=== PATIENT | female | born 1985 | race Caucasian/White ===

== ENCOUNTER 2024-11-17 13:17 | Outpatient (AMB) | payer MEDICAID, SELFPAY ==
--- NOTE | 2024-11-17 13:34 | AMB.OBINITIA ---
Vital Signs 11/17/24 13:52 Height 1.6 m Height Method Stated Weight 86.75 kg Weight Measurement Method Standing Scale BMI 33.8 BP 121/80 Blood Pressure Source Automatic Cuff Blood Pressure Location Right Upper Arm Position Sitting Respiration 17 Pulse 82 Pulse Source Monitor Temp 97.5 F Temp Source Temporal Artery Scan Pulse Oximetry (%) 97 Oxygen Delivery Method Room Air Allergies/Home Meds Allergies & Medications Allergies No Known Allergies Allergy (Verified 11/17/24 13:34) Medication Reconciliation aspirin 81 mg tablet,delayed release (Adult Aspirin Regimen) 81 mg PO QDAY #30 tabs 11/17/24 [Rx] Intake Visit Data Collection New Patient or Established: New Patient (never been to [facility]) 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 1. Little interest or pleasure in doing things: more than half the days 2. Feeling down, depressed, or hopeless: more than half the days Total score: 4 PHQ-9 3. Trouble falling or staying asleep, or sleeping too much: More than one-half days 4. Feeling tired or having little energy: More than one-half days 5. Poor appetite or overeating: Not at all 6. Feeling bad about yourself - or that you are a failure or have let yourself or your family down: Several days 7. Trouble concentrating on things, such as reading the newspaper or watching television: Several days 8. Moving or speaking so slowly that other people could have noticed? - Or the opposite - being so fidgety or restless that you have been moving around a lot more than usual: not at all 9. Thoughts that you would be better off or of hurting yourself in some way: Not at all Total score: 10.0 If you checked off any problems, how difficult have these problems made it for you to do your work, take care of things at home, or get along with other people?: somewhat difficult Source: Developed by Drs. Kana Sotelo, Nuha Domínguez, Genaro Jc and colleagues, with an educational missy from [employer]. Depression screen completed yes Social History Living Situation History Marital Status: Lives With: Family Housing: House Tobacco History Smoking Status: Never smoker Alcohol History Alcohol Intake: Never Domestic Abuse History Do You Feel Safe at Home: Yes History of Present Illness HPI Narrative This is a 39-year-old 6 para 4 for OB today. Patient is a transfer from [facility]. She has been seeing Dr. Maynard. Her first visit was in the first trimester. First ultrasound was September 17. Patient was 11 weeks and this gave a due date January 2025. Last menstrual period was March 23-. And this also confirmed her dates with her ultrasound. Patient denies social habits. Denies surgery. Denies chronic illness. Patient has been diagnosed with GDM with the . And anemia. Patient was previously scheduled by Dr. Maynard for a maternal- medicine ultrasound November 27 but patient canceled that appointment because it is too far away. And she would like to have an ultrasound here in [place]. She reports movement. Denies any signs or symptoms labor. No bleeding. No leaking. Patient reports that she is compliant with her blood sugars however when I looked at her log and her phone her fastings were normal. Her blood sugars after breakfast though about 75% of overall over goal. Lunch and dinner were okay though patient is O+, antibody screen negative, RPR nonreactive, rubella immune, hepatitis B negative, hep C negative, HIV negative, GC and Chlamydia were negative. Her 1 hour was 167 and then her A1c 5.93 or of course was abnormal. Her NIPT AFP and carrier screens were all negative. And her hemoglobin with third trimester labs was 11. And patient's been taking iron and her vitamin. 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 compliannt with glucose testing and diet. fetus active. c/o dysuria. refused mfm referal due to locartion. denies ptl signs,no leaking, fetus active low dose asa. continue PNV, sched sono at [facility] for growth sono, patient cancelled sono with MFM/too far, schedule NST/BPP. continue metformin 500 bid. continue GDM diet, sched with OB, sugars after breakfast elevated 75%. continue to walk 40 min daily, discuss fkc bid and PTL prwcaution, discuss GDM diet. A1c and ua today. rtc 2 week Menstrual History Menstrual reliability: definite Flow: heavy Menstrual regularity: irregular Monthly: Yes Age at menarche: 11 On control pills at conception: No OB History : 5 Para: 4 Hx # Pregnancies: 0 Hx Total # of Abortions (Spontaneous & Elective): 1 # of Living Children: 4 Delivery History 1st : Child's name: KIMMY WINSLOW date: 12/23/04 sex: female Gestational age at delivery (weeks): 40 Delivery type: vaginal weight (lbs): 3175.147 g weight (oz): 311.845 g History of depression before or after : No 2nd : Child's name: BORIS WINSLOW date: 07/18/06 sex: female Gestational age at delivery (weeks): 40 Delivery type: vaginal weight (lbs): 3175.147 g weight (oz): 170.097 g History of depression before or after : Yes 3rd : Child's name: MENG HOYOS date: 01/16/08 sex: male Gestational age at delivery (weeks): 40 Delivery type: vaginal weight (lbs): 198.447 g History of depression before or after : Yes 4th : Child's name: PAPO WINSLOW date: 05/31/17 sex: female Gestational age at delivery (weeks): 40 Delivery type: vaginal weight (lbs): 2721.554 g History of depression before or after : No Infection History & Risk Evaluation History of STDs: none HIV risk evaluation: low risk Hepatitis B risk evaluation: low risk Patient or partner has history of Genital Herpes: No Varicella/chicken pox status: immunized Genetic Screening & History Genetic Screening/Teratology Counseling - Includes patient, baby's father, or anyone in either family with: 1. Patient's age 35 years or older as of estimated date of delivery: Yes 2. Thalassemia (Lithuanian, Senegalese, Mediterranean, or Background); MCV less than 80: No 3. Neural Tube Defect (Meningomyelocele, Spina Bifida, or Anencephaly): No 4. Congenital Heart Defect: No 5. Down Syndrome: No 6. Pavel-Sachs (Ashkenazi Yarsanism, Cajun, Indonesian Welsh): No 7. Monica Disease (Ashkenazi Yarsanism): No 8. Familial Dysautonomia (Ashkenazi Yarsanism): No 9. Sickle Cell Disease or Trait (): No 10. Hemophilia or other blood disorders: No 11. Muscular Dystrophy: No 12. Cystic Fibrosis: No 13. Cecil's Chorea: No 14. Mental Retardation/Autism: No 15. Other inherited genetic or chromosomal disorder: No 16. Maternal Metabolic Disorder (EG,TYPE 1 Diabetes, PKU): No 17. Patient or baby's father had a child with defects not listed above: No 18. Recurrent loss or a stillbirth: No 19. Medications (including supplements, vitamins, herbs or otc drugs)/illicit/recreational drugs/alcohol since last menstrual period: No 20. Any other: No Infection History 1. Live with someone with TB or exposed to TB: No 2. Rash or viral illness since last menstrual period: No 3. Hepatitis B,C: No Other (see comments) Source: [employer] [place] [employer] Review of Systems Review of Systems Systems Reviewed: All systems reviewed, normal except as documented Exam General Limitations: no limitations General Appearance: alert, in no apparent distress, comfortable, cooperative, healthy appearing, well developed and well groomed Head Head exam: atraumatic, normocephalic and normal inspection Resp Respiratory exam: Present normal lung sounds bilaterally Card Cardiovascular exam: Present regular rate, normal rhythm and normal heart sounds Abdominal Abdominal exam: Present soft and normal bowel sounds Psych Psychiatric exam: Present normal affect and normal mood Skin Skin exam: Present warm, dry, intact and normal color Office Procedures OB Clinic LOC & Office Proc's Nursing/Assessment Patient Status: Initial/New Patient OB Clinic Nursing Assessment: Medication Reconciliation, Update PMH in EMR and Vital Signs OB Clinic Coordination of Care: Complex Care and Chronic Disease 1-5, Consent,records obtained, informed consent, Education Simp Pt/Fam and Staff clarify orders Special Needs: Heart tones New Patient Charge New Patient Point Assignment: [id number] New Patient Point 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 Continue vitamins and her iron twice a day. Schedule with OB to evaluate compliance with GDM diet and glucose monitoring. Reviewed GDM diet with patient advised walking 40 minutes a day. Increase fluids. Discussed kick count. And I scheduled patient to start weekly NST BPP. Return in 3 weeks with me for OB check.continue metformin 500 bid, urine culture today and A1c Additional Plan Follow Up: 3 Weeks (OBC)
[2024-11-17 13:52] VITALS: BP 121/80; PULSE 82; RESP 17; TEMP 36.4; O2SAT 97; BMI 33.8
== END 2024-11-17 14:22 | disposition home or self-care (01) ==
LOC: HODSOBC 13:17
PROVIDERS: PCP Physician Assistant; Referring Provider Physician Assistant; Supervising Provider Advanced Practice Midwife; Visit Provider Advanced Practice Midwife
DX: O09.523 Supervision of elderly multigravida, third trimester (principal); Z3A.33 33 weeks gestation of pregnancy; O09.893 Supervision of other high risk pregnancies, third trimester; O24.415 Gestational diabetes mellitus in pregnancy, controlled by oral hypoglycemic drugs
CPT/HCPCS: 99203; G0463

== ENCOUNTER 2024-11-28 11:07 | Outpatient (AMB) | payer MEDICAID, SELFPAY ==
[2024-11-28 11:14] VITALS: BP 133/82; PULSE 78; RESP 17; TEMP 36.6; O2SAT 97; BMI 34.8
--- NOTE | 2024-11-28 11:14 | AMB.OBVISIT ---
Vital Signs 11/28/24 11:14 Height 1.6 m Height Method Measured Weight 89.131 kg Weight Measurement Method Standing Scale BMI 34.8 BP 133/82 H Blood Pressure Source Automatic Cuff Blood Pressure Location Right Upper Arm Position Sitting Respiration 17 Pulse 78 Pulse Source Monitor Temp 97.8 F Temp Source Temporal Artery Scan Pulse Oximetry (%) 97 Oxygen Delivery Method Room Air Allergies/Home Meds Allergies & Medications Allergies No Known Allergies Allergy (Verified 11/28/24 11:15) Medication Reconciliation aspirin 81 mg tablet,delayed release (Adult Aspirin Regimen) 81 mg PO QDAY #30 tabs 11/17/24 [Rx Confirmed 11/28/24] amoxicillin 875 mg-potassium clavulanate 125 mg tablet 1 tab PO BID 7 days #14 tabs 11/27/24 [Rx Confirmed 11/28/24] mv-mn no.97-folic 180 mcg-dha 25 mg-herb no.293 25 mg chewable tablet (Alive Daily Support ) tab PO 11/28/24 [History Confirmed 11/28/24] Intake Visit Data Collection New Patient or Established: Established Patient (seen at [facility] within 3 years) Reason for Visit:: OBC\SUGAR LOG Seen by Clinical Staff ONLY (RN/MA): No Hematology Supervisor Required: No Do You Feel Safe at Home: Yes Authorities Contacted: N/A PCP or OBGYN visit in last 3 months: Yes Date of Last PCP or OBGYN visit: 11/17/24 Hx Now: Yes Are you currently on any form of Control: No Pain Present Currently: No Pain Scale Used: Srinivasan-Cotto/Numerical Pain scale:: 0 Smoking Status Smoking Status: Never smoker Questionnaires Covid-19 Vaccine Questionnaire Has patient been vacinated for Covid-19 Have you been vacinated for Covid-19: Yes PHQ-9 PHQ-2 Over the last 2 weeks, how often have you been bothered by any of the following problems? 1. Little interest or pleasure in doing things: more than half the days PHQ-9 8. Moving or speaking so slowly that other people could have noticed? - Or the opposite - being so fidgety or restless that you have been moving around a lot more than usual: not at all Source: Developed by Drs. Kana Sotelo, Nuha Domínguez, Genaro Jc and colleagues, with an educational missy from [employer]. 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 No contractions, LOF, VB and reports good FM. Denies HAGAN, VC, and epigastric pain. - Wendy Marin is a 39-year-old at 34 weeks and 5 days gestation presenting for routine visit and review of blood glucose logs. - Estimated due date: 01/04/2025 - Transferred care from [facility] (Dr. Dietz) to current office - All previous deliveries were vaginal - Gestational diabetes management: - Currently on Metformin 2 times a day - Home blood glucose monitoring - Highest fasting glucose reported: 120 mg/dL - Highest post-meal glucose reported: 140-150 mg/dL - Patient reports occasional indulgence in cravings - No reported complications or concerns with current heart tones: 142-144 bpm. Laboratory, Imaging, and Diagnostic Test Results - Blood glucose logs: - Fasting: Highest reported as 95 mg/dL - Post-meal: Highest reported as 145 mg/dL - Previous week: Some values above 150 mg/dL, majority below 150 mg/dL Care OB Visit Log OB Flowsheet Initial Weight: Not Recorded Date <del>?</del> EGA Weight BP Alb Glu CTX Pres Fundal ht FHR Mov Dilation Station Effacement Hx Notes Visit Note 11/17/24 <del>?</del> 33w 1d 86.75 kg 121/80 absent cephalic 32 145 active 39 yo ob transfer from [facility] with records, GDM on metformin 500 bid. compliannt with glucose testing and diet. fetus active. c/o dysuria. refused mfm referal due to locartion. denies ptl signs,no leaking, fetus active low dose asa. continue PNV, sched sono at [facility] for growth sono, patient cancelled sono with MFM/too far, schedule NST/BPP. continue metformin 500 bid. continue GDM diet, sched with OB, sugars after breakfast elevated 75%. continue to walk 40 min daily, discuss fkc bid and PTL prwcaution, discuss GDM diet. A1c and ua today. rtc 2 week 11/28/24 <del>?</del> 34w 5d 89.131 kg 133/82 absent cephalic 35 144 39y/o at 34+5 weeks gestation with GDM on metformin BID, presents for routine visit. Denies CTX, LOF, VB; reports good FM Plan: continue metformin, initiate BPP [id number], schedule IOL ~12/28/24, f/u in 2 weeks. BARBIE Calculator Estimated Delivery Date Method Current WG Current Estimate 01/04/25 LMP (Certain) 34w 5d Notes Visit Date: 11/17/24 Last Updated by: Court Granda, MARIELA 39 yo GDM/diet. lmp 03/30/25. EDC 01/08/25, 1hr gtt: 169, A1: 5.9. O+,abs-, rpr;;nr, rub imm, HBSAG-,hiv-, HC-, GC./CT-. . NIPT/af/,carrier screen- Exam General General Appearance: alert, in no apparent distress and healthy appearing Head Head exam: atraumatic Neck Neck exam: Present normal inspection and trachea midline Chest Chest inspection: Present normal inspection and symmetric chest wall rise External exam: Present normal external exam; Absent tenderness Neuro Neurological exam: Present oriented X3 Psych Psychiatric exam: Present normal affect and normal mood Office Procedures OB Clinic LOC & Office Proc's Nursing/Assessment Patient Status: Established Patient OB Clinic Nursing Assessment: Medication Reconciliation, Update PMH in EMR and Vital Signs OB Clinic Coordination of Care: Complex Care and Chronic Disease 1-5, Consent,records obtained, informed consent and Staff clarify orders Special Needs: Heart tones Established Patient Charge Established Patient Point Assignment: 100 Established Patient Point Charge: EP Level 3 (80-115) Assessment & Plan Diagnosis / Problem List (1) UTI in : Status: Acute (2) ESBL (extended spectrum beta-lactamase) producing bacteria infection: Status: Acute (3) Encounter for supervision of high risk in third trimester, antepartum: Status: Acute (4) Diet controlled gestational diabetes mellitus (GDM) in third trimester: Status: Acute Plan Problem List - Gestational diabetes mellitus - , 34 weeks and 5 days gestation - 5, para 4 Assessment 39-year-old at 34 weeks and 5 days gestation with BARBIE 01-04-2025, presenting for routine visit. Patient has gestational diabetes mellitus (GDM) managed with metformin 2 times daily and diet control. Home glucose monitoring shows mostly acceptable levels, with a few readings above 150 mg/dL. heart rate auscultated at 142-144 bpm, which is within normal range. Patient has history of 4 previous vaginal deliveries and transferred care from [facility]. Plan - Continue Metformin twice daily for gestational diabetes management - Set up hospital monitoring for well-being twice weekly - Schedule induction for one week before due date (approximately 12/28/2024) - Follow up in two weeks (week of 12/15/2024) due to holiday next week - Maintain diet control and blood glucose monitoring - Advised to walk for 5-10 minutes after eating sweets to help manage blood sugar levels - Will call patient to set up hospital monitoring appointments 1. Progress Reviewed gestational age, growth, and heart rate. Planned frequent visits (every 2 weeks until 36 weeks, then weekly). 2. Instructed patient to monitor movements and report decreases immediately. 3. Testing Counseled on routine third-trimester labs per guidelines. Discussed potential need for ultrasound or monitoring based on risk factors. 4. Preeclampsia Precaution Educated on preeclampsia signs: severe headache, vision changes, right upper quadrant pain, sudden swelling. Advised urgent reporting of symptoms and discussed blood pressure monitoring if high risk. 5. Labor Precautions Reviewed labor signs: regular contractions, pelvic pressure, back pain, bleeding, or fluid leakage. Instructed to seek immediate care for these symptoms. 6. Lifestyle and Delivery Preparation Reinforced vitamins, nutrition, and safe activity. Discussed plan, pain management, and . Advised on labor preparation (e.g., hospital bag) and expectations. 7. Psychosocial Support Assessed emotional well-being and offered resources for mental health or parenting support.
== END 2024-11-28 11:37 | disposition home or self-care (01) ==
LOC: HODSOBC 11:07
PROVIDERS: PCP Obstetrics & Gynecology; Referring Provider Obstetrics & Gynecology; Supervising Provider Obstetrics & Gynecology; Visit Provider Obstetrics & Gynecology
DX: O09.523 Supervision of elderly multigravida, third trimester (principal); O09.893 Supervision of other high risk pregnancies, third trimester; O24.415 Gestational diabetes mellitus in pregnancy, controlled by oral hypoglycemic drugs; O23.43 Unspecified infection of urinary tract in pregnancy, third trimester; N39.0 Urinary tract infection, site not specified; Z3A.34 34 weeks gestation of pregnancy; Z16.12 Extended spectrum beta lactamase (ESBL) resistance
CPT/HCPCS: 99213; G0463

== ENCOUNTER 2024-12-09 09:56 | Outpatient (AMB) | payer MEDICAID, SELFPAY ==
[2024-12-09 10:17] VITALS: BP 134/84; PULSE 71; RESP 17; TEMP 36.6; O2SAT 97; BMI 34.9
--- NOTE | 2024-12-09 10:17 | OBCLNT_ITS ---
Vital Signs 12/09/24 10:17 Height 1.6 m Height Method Measured Weight 89.358 kg Weight Measurement Method Standing Scale BMI 34.9 BP 134/84 H Blood Pressure Source Automatic Cuff Blood Pressure Location Right Upper Arm Position Sitting Respiration 17 Pulse 71 Pulse Source Monitor Temp 97.9 F Temp Source Temporal Artery Scan Pulse Oximetry (%) 97 Oxygen Delivery Method Room Air Allergies/Home Meds Allergies & Medications Allergies No Known Allergies Allergy (Verified 12/09/24 10:18) Medication Reconciliation aspirin 81 mg tablet,delayed release (Adult Aspirin Regimen) 81 mg PO QDAY #30 tabs 11/17/24 [Rx Confirmed 12/09/24] mv-mn no.97-folic 180 mcg-dha 25 mg-herb no.293 25 mg chewable tablet (Alive Daily Support ) tab PO 11/28/24 [History Confirmed 12/09/24] blood sugar diagnostic (Blood Glucose Test strips) #10 ea 12/09/24 [Rx] clotrimazole 2 % vaginal cream (Gyne-Lotrimin) 1 appful vaginal QHS 3 days #21 grams 12/09/24 [Rx] fluconazole 150 mg tablet 150 mg PO QDAY 3 days #3 tabs 12/09/24 [Rx] lancets #100 ea 12/09/24 [Rx] Intake Visit Data Collection New Patient or Established: Established Patient (seen at [facility] within 3 years) Reason for Visit:: OBC Consent obtained for Telemed Visit: No Seen by Clinical Staff ONLY (RN/MA): No Credit Risk Review Officer Required: No Do You Feel Safe at Home: Yes Authorities Contacted: N/A PCP or OBGYN visit in last 3 months: Yes Date of Last PCP or OBGYN visit: 12/08/24 Hx Now: Yes Are you currently on any form of Control: No Pain Present Currently: Yes Pain scale:: 3 Smoking Status Smoking Status: Never smoker Questionnaires Covid-19 Vaccine Questionnaire Has patient been vacinated for Covid-19 Have you been vacinated for Covid-19: Yes PHQ-9 PHQ-2 Over the last 2 weeks, how often have you been bothered by any of the following problems? 1. Little interest or pleasure in doing things: more than half the days PHQ-9 8. Moving or speaking so slowly that other people could have noticed? - Or the opposite - being so fidgety or restless that you have been moving around a lot more than usual: not at all Source: Developed by Drs. Kana Sotelo, Nuha Domínguez, Genaro Jc and colleagues, with an educational missy from [employer]. 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 compliannt with glucose testing and diet. fetus active. c/o dysuria. refused mfm referal due to locartion. denies ptl signs,no leaking, fetus active low dose asa. continue PNV, sched sono at [facility] for growth sono, patient cancelled sono with MFM/too far, schedule NST/BPP. continue metformin 500 bid. continue GDM diet, sched with OB, sugars after breakfast elevated 75%. continue to walk 40 min daily, discuss fkc bid and PTL prwcaution, discuss GDM diet. A1c and ua today. rtc 2 week 11/28/24 -?-?-?-?-?-?-?-?-?-?-?-?- 34w 5d 89.131 kg 133/82 absent cephalic 35 144 39y/o at 34+5 weeks gestation with GDM on metformin BID, presents for routine visit. Denies CTX, LOF, VB; reports good FM Plan: continue metformin, initiate BPP [id number], schedule IOL ~12/28/24, f/u in 2 weeks. 12/09/24 -?-?-?-?-?-?-?-?-?-?-?-?- 36w 2d 89.358 kg 134/84 absent cephalic 36 145 active test once daily, compliant with metformin 500 daily. fetus active, no c/o labor. refuses f/u growth sono. stop ASA, IOL 12/28, review labor precaution. fkc bid. continue metformin 500 bid, review GDM diet. continue BIweekly NST BPP. sched sono at [facility] for dates. refill lancet and strip, stop ASA, discuss labor precaution,fkc bid, rtc 1 week with GDM log. GBS today IOL 12/28/24, review labor pr ecaution. fkc bid. continue metformin 500 bid, review GDM diet. continue BIweekly NST BPP. sched sono at [facility] for dates. refill lancet and strip, stop ASA, discuss labor precaution,fkc bid, rtc 1 week with GDM log. GBS today. nuab BARBIE Calculator Estimated Delivery Date Method Current WG Current Estimate 01/04/25 LMP (Certain) 36w 2d Notes Visit Date: 11/17/24 Last Updated by: Court Granda, MARIELA 39 yo GDM/diet. lmp 03/30/25. EDC 01/08/25, 1hr gtt: 169, A1: 5.9. O+,abs-, rpr;;nr, rub imm, HBSAG-,hiv-, HC-, GC./CT-. . NIPT/af/,carrier screen- Office Procedures OB Clinic LOC & Office Proc's Nursing/Assessment Patient Status: Established Patient OB Clinic Nursing Assessment: Medication Reconciliation, Update PMH in EMR and Vital Signs OB Clinic Coordination of Care: Complex Care and Chronic Disease 1-5, Consent,records obtained, informed consent, 4+ Authorizations needed and Staff clarify orders Special Needs: Heart tones Miscellaneous Interventions: Blood/Urine Collection Established Patient Charge Established Patient Point Assignment: 155 Established Patient Point Charge: EP Level 4 (120-155) Assessment & Plan Diagnosis / Problem List (1) Advanced maternal age (AMA) in : Status: Acute (2) Encounter for supervision of high risk in third trimester, antepartum: Status: Acute (3) Vaginitis: Status: Acute Plan nuswab, GBS today, refill lancet and strips, r/s [facility] for growth/refused [facility]/MFM. stop ASA, review diet and parameters of glucose monitoring, continue metformin 500 daily and week NST/BPP. IOL 12/28. discuss labor precaution, fkc bid. rtc 1 week Additional Plan Follow Up: 1 Week (obc)
== END 2024-12-09 11:13 | disposition home or self-care (01) ==
LOC: HODSOBC 09:56
PROVIDERS: PCP Obstetrics & Gynecology; Referring Provider Obstetrics & Gynecology; Supervising Provider Advanced Practice Midwife; Visit Provider Advanced Practice Midwife
DX: O09.523 Supervision of elderly multigravida, third trimester (principal); Z3A.36 36 weeks gestation of pregnancy; O09.893 Supervision of other high risk pregnancies, third trimester; O23.593 Infection of other part of genital tract in pregnancy, third trimester; N76.0 Acute vaginitis; O24.415 Gestational diabetes mellitus in pregnancy, controlled by oral hypoglycemic drugs; Z36.85 Encounter for antenatal screening for Streptococcus B
CPT/HCPCS: 99214; G0463

== ENCOUNTER 2024-12-17 09:01 | Outpatient (AMB) | payer MEDICAID, SELFPAY ==
[2024-12-17 09:18] VITALS: BP 154/88; PULSE 75; RESP 16; TEMP 36.6; O2SAT 98; BMI 36.2
--- NOTE | 2024-12-17 09:18 | AMB.OBVISIT ---
Vital Signs 12/17/24 09:18 Height 1.57 m Height Method Stated Weight 89.868 kg Weight Measurement Method Standing Scale BMI 36.2 BP 154/88 H Blood Pressure Source Automatic Cuff Blood Pressure Location Left Upper Arm Position Sitting Respiration 16 Pulse 75 Pulse Source Monitor Temp 97.8 F Temp Source Oral Pulse Oximetry (%) 98 Oxygen Delivery Method Room Air Allergies/Home Meds Allergies & Medications Allergies No Known Allergies Allergy (Verified 12/17/24 09:22) Medication Reconciliation aspirin 81 mg tablet,delayed release (Adult Aspirin Regimen) 81 mg PO QDAY #30 tabs 11/17/24 [Rx Confirmed 12/17/24] mv-mn no.97-folic 180 mcg-dha 25 mg-herb no.293 25 mg chewable tablet (Alive Daily Support ) tab PO 11/28/24 [History Confirmed 12/17/24] blood sugar diagnostic (Blood Glucose Test strips) #10 ea 12/09/24 [Rx Confirmed 12/17/24] lancets #100 ea 12/09/24 [Rx Confirmed 12/17/24] fluconazole 150 mg tablet 150 mg PO QDAY 3 days #3 tabs 12/15/24 [Rx Confirmed 12/17/24] Intake Visit Data Collection New Patient or Established: Established Patient (seen at [facility] within 3 years) Reason for Visit:: CARE Seen by Clinical Staff ONLY (RN/MA): No Copyholder Required: No Do You Feel Safe at Home: Yes Authorities Contacted: N/A PCP or OBGYN visit in last 3 months: Yes Hx Now: No Are you currently on any form of Control: No Pain Present Currently: No Pain Scale Used: Srinivasan-Cotto/Numerical Pain scale:: 0 Smoking Status Smoking Status: Never smoker Questionnaires Covid-19 Vaccine Questionnaire Has patient been vacinated for Covid-19 Have you been vacinated for Covid-19: Yes PHQ-9 PHQ-2 Over the last 2 weeks, how often have you been bothered by any of the following problems? 1. Little interest or pleasure in doing things: not at all 2. Feeling down, depressed, or hopeless: not at all Total score: 0 PHQ-9 3. Trouble falling or staying asleep, or sleeping too much: Not at all 4. Feeling tired or having little energy: Not at all 5. Poor appetite or overeating: Not at all 6. Feeling bad about yourself - or that you are a failure or have let yourself or your family down: Not at all 7. Trouble concentrating on things, such as reading the newspaper or watching television: Not at all 8. Moving or speaking so slowly that other people could have noticed? - Or the opposite - being so fidgety or restless that you have been moving around a lot more than usual: not at all 9. Thoughts that you would be better off or of hurting yourself in some way: Not at all Total score: 0 Source: Developed by Drs. Kana Sotelo, Nuha Domínguez, Genaro Jc and colleagues, with an educational missy from [employer]. 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 compliannt with glucose testing and diet. fetus active. c/o dysuria. refused mfm referal due to locartion. denies ptl signs,no leaking, fetus active low dose asa. continue PNV, sched sono at [facility] for growth sono, patient cancelled sono with MFM/too far, schedule NST/BPP. continue metformin 500 bid. continue GDM diet, sched with OB, sugars after breakfast elevated 75%. continue to walk 40 min daily, discuss fkc bid and PTL prwcaution, discuss GDM diet. A1c and ua today. rtc 2 week 11/28/24 <del>?</del> 34w 5d 89.131 kg 133/82 absent cephalic 35 144 39y/o at 34+5 weeks gestation with GDM on metformin BID, presents for routine visit. Denies CTX, LOF, VB; reports good FM Plan: continue metformin, initiate BPP [id number], schedule IOL ~12/28/24, f/u in 2 weeks. 12/09/24 <del>?</del> 36w 2d 89.358 kg 134/84 absent cephalic 36 145 active test once daily, compliant with metformin 500 daily. fetus active, no c/o labor. refuses f/u growth sono. stop ASA, IOL 12/28/24, review labor precaution. fkc bid. continue metformin 500 bid, review GDM diet. continue BIweekly NST BPP. sched sono at [facility] for dates. refill lancet and strip, stop ASA, discuss labor precaution,fkc bid, rtc 1 week with GDM log. GBS today IOL 12/28/24, review labor precaution. fkc bid. continue metformin 500 bid, review GDM diet. continue BIweekly NST BPP. sched sono at [facility] for dates. refill lancet and strip, stop ASA, discuss labor precaution,fkc bid, rtc 1 week with GDM log. GBS today. nuswab 12/17/24 <del>?</del> 37w 3d 89.868 kg 154/88 absent cephalic 37 146 active 1 -3 25 report compliance with GDM diet and glucose monitoring. sugar at goal 90%. patient left [facility] 12[facility] [facility]. patient was schedule for IOL due to gestational HTN. patient has been checking BP at home, BP remains consistent elevated. BP today: 154/88. denies PIH complaints. patient is hesitant to IOL, denies UC, no VB or leaking. fetus active, DTR +2,no edema,no clonus discuss with patient IOL. discuss gestational hypertention and diabetes to her and fetus. today, patient agrees to BST/BPP in am and IOL if needed, agrees to schedule IOL on 12/19/24. . discuss PIH precaution, fkc bid. discuss danger s/s and ER precaution. rtc 1 week discuss with patient IOL. discuss . review GDM diet and BS log gestational hypertention and diabetes to her and fetus. today, patient agrees to BST/BPP in am and IOL if needed, agrees to schedule IOL on 12/19/24. . discuss PIH precaution, fkc bid. discuss danger s/s and ER precaution. rtc 1 week BARBIE Calculator Estimated Delivery Date Method Current WG Current Estimate 01/04/25 LMP (Certain) 37w 3d Notes Visit Date: 11/17/24 Last Updated by: Court Granda, MARIELA 39 yo GDM/diet. lmp 03/30/25. EDC 01/08/25, 1hr gtt: 169, A1: 5.9. O+,abs-, rpr;;nr, rub imm, HBSAG-,hiv-, HC-, GC./CT-. . NIPT/af/,carrier screen- Office Procedures OB Clinic LOC & Office Proc's Nursing/Assessment Patient Status: Established Patient OB Clinic Nursing Assessment: Medication Reconciliation, Update PMH in EMR and Vital Signs OB Clinic Coordination of Care: AMA, Complex Care and Chronic Disease 1-5, Consent,records obtained, informed consent, Education Simp Pt/Fam, Lab and Imaging orders, Results/Orders obtained and Staff clarify orders Special Needs: Heart tones Established Patient Charge Established Patient Point Assignment: 155 Established Patient Point Charge: EP Level 4 (120-155) Assessment & Plan Diagnosis / Problem List (1) Advanced maternal age (AMA) in : Status: Acute (2) Diet controlled gestational diabetes mellitus (GDM) in third trimester: Status: Acute (3) Encounter for supervision of high risk in third trimester, antepartum: Status: Acute Plan discuss PIH and CHTN with patient, discuss effect on baby and herself. discuss IOL for 12/18/24. patient agrees. continue monitoring BS and GDM diet. week NST/BPP, review fkc bid. continue pnv, hydrate Additional Plan Follow Up: 1 Week (obc)
== END 2024-12-17 10:53 | disposition home or self-care (01) ==
LOC: HODSOBC 09:01
PROVIDERS: Supervising Provider Advanced Practice Midwife; Visit Provider Advanced Practice Midwife
DX: O09.523 Supervision of elderly multigravida, third trimester (principal); O09.893 Supervision of other high risk pregnancies, third trimester; O24.410 Gestational diabetes mellitus in pregnancy, diet controlled; O13.3 Gestational [pregnancy-induced] hypertension without significant proteinuria, third trimester; Z3A.37 37 weeks gestation of pregnancy
CPT/HCPCS: 99214; G0463

== ENCOUNTER 2024-12-18 13:29 | Outpatient (RCR) | payer MEDICAID, SELFPAY ==
--- NOTE | 2024-12-04 13:59 | XR_ITS ---
Examination: Biophysical profile, ultrasound Date and time of exam: December 04, 2024 1429 hours INDICATIONS: Diagnosis advanced maternal age Technique: Multiple transabdominal sonographic images of the pelvis abdomen obtained. Attention is directed to the breathing movement, gross body movement, amniotic fluid volume and tone. Findings: Amniotic fluid index 11.4 cm Total biophysical profile is 8 of 8. breathing movement is 2. Gross body movement is 2. tone is 2. Qualitative amniotic fluid volume is 2 Impression: Biophysical profile is 8 of 8.
[2024-12-04 15:03] VITALS: BP 134/76; PULSE 71; RESP 16; TEMP 36.7
--- NOTE | 2024-12-08 13:35 | XR_ITS ---
Examination: Biophysical profile, ultrasound Date and time of exam: December 08, 2024 1337 hours INDICATIONS: Diagnosis advanced maternal age Technique: Multiple transabdominal sonographic images of the pelvis abdomen obtained. Attention is directed to the breathing movement, gross body movement, amniotic fluid volume and tone. Findings: Amniotic fluid index 10.6 cm Total biophysical profile is 8 of 8. breathing movement is 2. Gross body movement is 2. tone is 2. Qualitative amniotic fluid volume is 2 Impression: Biophysical profile is 8 of 8.
[2024-12-08 14:36] VITALS: BP 128/76; PULSE 82; RESP 16; TEMP 36.8
--- NOTE | 2024-12-11 13:36 | XR_ITS ---
Examination: Biophysical profile, ultrasound Date and time of exam: December 11, 2024 1340 hours INDICATIONS: Diagnosis advanced maternal age Technique: Multiple transabdominal sonographic images of the pelvis abdomen obtained. Attention is directed to the breathing movement, gross body movement, amniotic fluid volume and tone. Findings: Amniotic fluid index 6.9 cm Total biophysical profile is 8 of 8. breathing movement is 2. Gross body movement is 2. tone is 2. Qualitative amniotic fluid volume is 2 Impression: Biophysical profile is 8 of 8.
[2024-12-11 14:25] VITALS: BP 134/72; PULSE 68; RESP 16; TEMP 36.7
--- NOTE | 2024-12-15 13:47 | XR_ITS ---
Examination: Biophysical profile, ultrasound Date and time of exam: June 17, 2024 1350 hours INDICATIONS: Diagnosis gestational diabetes, diagnosis advanced maternal age Technique: Multiple transabdominal sonographic images of the pelvis abdomen obtained. Attention is directed to the breathing movement, gross body movement, amniotic fluid volume and tone. Findings: Amniotic fluid index 7 cm Total biophysical profile is 8 of 8. breathing movement is 2. Gross body movement is 2. tone is 2. Qualitative amniotic fluid volume is 2 Impression: Biophysical profile is 8 of 8.
[2024-12-15 14:15] VITALS: BP 139/67; PULSE 64; RESP 16; TEMP 36.8
[2024-12-15 15:40] VITALS: BP 139/67; PULSE 64; RESP 16; TEMP 36.8
--- NOTE | 2024-12-18 13:43 | XR_ITS ---
Examination: Biophysical profile, ultrasound Date and time of exam: December 18, 2024 1346 hours INDICATIONS: Diagnosis gestational diabetes, diagnosis advanced maternal age Technique: Multiple transabdominal sonographic images of the pelvis abdomen obtained. Attention is directed to the breathing movement, gross body movement, amniotic fluid volume and tone. Findings: Amniotic fluid index 5.6 cm Total biophysical profile is 8 of 8. breathing movement is 2. Gross body movement is 2. tone is 2. Qualitative amniotic fluid volume is 2 Impression: Biophysical profile is 8 of 8.
[2024-12-18 14:26] VITALS: BP 154/72; PULSE 74; RESP 16
== END 2024-12-18 23:59 | disposition home or self-care (01) ==
LOC: S4S1 13:29
PROVIDERS: PCP Obstetrics & Gynecology; Referring Provider Advanced Practice Midwife; Visit Provider Advanced Practice Midwife
DX: O24.410 Gestational diabetes mellitus in pregnancy, diet controlled (principal); O09.523 Supervision of elderly multigravida, third trimester; O09.93 Supervision of high risk pregnancy, unspecified, third trimester; Z3A.37 37 weeks gestation of pregnancy
CPT/HCPCS: 59025; 76819

== ENCOUNTER 2024-12-19 01:57 | Inpatient (IN) | payer MEDICAID, SELFPAY ==
[2024-12-19] VITALS (81 sets, daily range): BP systolic 128–171; BP diastolic 61–109; PULSE 68–88; RESP 16–18; TEMP 36.7–36.9; O2SAT 95–99; BMI 36.0
[2024-12-19] MEDS: RINGERS LACTATED 1000 ML 1,000 ML 125 ML IV (02:44)
[2024-12-19 02:54] LABS: Collection Type, Urine Clean Catch
[2024-12-19 03:02] LABS: Basophils # (Auto) 0.0 Thou/mm3 (0.0-0.2); Basophils % (Auto) 0 % (0-2.5); Eosinophils # (Auto) 0.1 Thou/mm3 (0.0-0.5); Eosinophils % (Auto) 1 % (0-10); Hematocrit 33.5 % (36.0-46.0); Hemoglobin 11.9 g/dL (12.0-16.0); Immature Granulocytes Auto 0.02 Thou/mm3 (0.00-0.00); Lymphocytes # (Auto) 3.0 Thou/mm3 (1.0-4.8); Lymphocytes % (Auto) 33 % (10-50); Mean Corpuscular HGB Conc 35.5 g/dl (31.0-37.0); Mean Corpuscular Hemoglobin 30.9 pg (25.0-35.0); Mean Corpuscular Volume 87 fL (80-100); Monocytes # (Auto) 0.6 Thou/mm3 (0.0-0.8); Monocytes % (Auto) 7 % (0-12); Neutrophils # (Auto) 5.5 Thou/mm3 (1.8-7.7); Neutrophils % (Auto) 60 % (37-80); Nucleated Red Blood Cell # 0.00 Thou/mm3 (0.00-0.00); Nucleated Red Blood Cell % 0 /100 WBC (0); Platelet Count 248 Thou/mm3 (140-440); RDW Standard Deviation 43.8 fL (36.4-46.3); Red Blood Count 3.85 Miln/mm3 (4.00-5.20); White Blood Count 9.3 Thou/mm3 (3.6-11.0)
[2024-12-19 03:08] LABS: Bilirubin,Urine Negative (Negative); Blood,Urine Negative (Negative); Clarity,Urine Clear (Clear/Hazy); Color,Urine Colorless (Lt Yel-Yel); Glucose, Urine Negative (Negative); Ketones,Urine Negative (Negative); Leukocyte Esterase,Urine Negative (Negative); Nitrite,Urine Negative (Negative); PH,Urine 6.5 (5.0-7.0); Protein,Urine 1+ (Neg - Trace); RBC,Urine 1 /hpf (0-3); Specific Gravity,Urine 1.006 (1.001-1.035); Squamous Epithelial Cell,Urine 1 /hpf (0-5); Urobilinogen,Urine Negative mg/dL (0.0-1.0); WBC,Urine 2 /hpf (0-5)
--- NOTE | 2024-12-19 03:30 | XR_ITS ---
Examination: Complete OB ultrasound greater than 14 weeks Date and time of exam: December 19, 2024, 0349 hours INDICATIONS: Labor evaluation, patient in active labor pelvic contractions at this time Findings: Viable intrauterine single fetus with single amniotic sac presentation Vertex Cardiac motion 133 BPM Placenta posterior grade 3 Umbilical cord insertion seen Amniotic fluid index 14.3 cm spine maternal left Ovaries obscured by bowel gas. Composite estimated gestational age based on BPD, head circumference, abdominal circumference, femur length is 0 days Estimated weight 2946.8 g. Survey of intracranial anatomy, spinal anatomy, abdominal anatomy, four-chamber heart performed with no abnormalities identified. Impression: Viable intrauterine gestation vertex presentation.
[2024-12-19 03:46] LABS: Fibrinogen 589 mg/dL (175-375); INR 0.9 (0.9-1.3); Partial Thromboplastin Time 25.6 Seconds (22.0-36.0); Prothrombin Time 10.4 Seconds (9.0-12.2)
[2024-12-19 03:49] LABS: Alanine Aminotransferase 10 U/L (10-49); Albumin, Serum 4.3 gm/dL (3.5-5.0); Albumin/Globulin Ratio 1.6 (1.2-2.2); Alkaline Phosphatase 129 U/L (46-116); Anion Gap 13 (7-16); Aspartate Amino Transferase 20 U/L (0-34); BUN/Creatinine Ratio 12 Ratio (12-20); Bilirubin,Total 0.4 mg/dL (0.3-1.2); Blood Urea Nitrogen 6 mg/dL (9-23); Calcium 9.0 mg/dL (8.3-10.6); Calcium (Corrected) 9.0 mg/dL (8.5-10.1); Carbon Dioxide 19.4 mMol/L (20.0-31.0); Chloride 106 mMol/L (98-107); Creatinine (Component) 0.5 mg/dL (0.6-1.3); Estimated Creatinine Clearance 153.8 mL/min (>60); Globulin 2.7 gm/dL (2.3-3.5); Glucose 97 mg/dL (74-106); Osmolality,Calculated 273 (275-295); Potassium 4.1 mMol/L (3.4-5.1); Sodium 138 mMol/L (136-145); Total Protein 7.0 gm/dL (5.7-8.2); Uric Acid 5.1 mg/dL (3.1-7.8); eGFR > 60 See Note
[2024-12-19 03:59] LABS: Creatinine,Random Urine 26 mg/dL (30-125); Protein Total, Random Urine 54 mg/dL (1-14)
[2024-12-19 04:05] LABS: Syphilis Nonreactive (Nonreactive)
--- NOTE | 2024-12-19 05:49 | PRELIM_ITS ---
Obstetric ultrasound. December 19, 2024 0349 hours Clinical history: Gestational diabetes mellitus , Advanced maternal age Comparison: None. Findings: There is a gravid uterus with a live fetus in vertex presentation of mean gestational age 37 weeks and 0 day (by biometry). cardiac activity is present at a heart rate of 133 beats per minute. The placenta is posterior in location, maturity grade 3. There is no evidence of placenta previa or retroplacental hemorrhage. Amniotic fluid is adequate (PRISCA = 14.3 cm). Estimated weight is 2947 grams+/- 436 grams. Estimated due date by ultrasound is 01/09/2025. Anatomy: Spine: Long, maternal left. Entire spine visualized in longitudinal and transverse axis. Vertebrae and spinal canal appeared normal. Heart: Normal cardiac situs. Four chamber view normal. 3 Vessel cord visualized. Umbilical cord visualized. KUB: Both kidneys and bladder appeared normal. Extremities: All long bones visualized and appear normal for the period of gestation. Both feet appeared normal. Biometry: BPD = 9.3 cm (37 weeks 6 days) HC = 32.8 cm (37 weeks 2 days) AC = 31.9 cm (35 weeks 6 days) FL = 7.2 cm (36 weeks 5 days) The ovaries are obscured by bowel gas and are not evaluated on this examination. Impression: Gravid uterus with a single live fetus in vertex presentation of mean gestational age 37 weeks 0 day. Other findings as described above. Report Electronically Signed By: Jacky Lynn 12/19/2024 5:48:51 AM [EST]
--- NOTE | 2024-12-19 06:43 | ESHP_ITS ---
Documentation for date of: 12/19/24 OB Labor/Induct. HPI History of Present Illness Chief complaint: IOL gestational hypertention/GDM diet : 6 Para: 4 Term pregnancies: 4 pregnancies: 0 Living children: 4 History of Abortions: Spontaneous and Elective: 1 History of Vaginal deliveries: 4 History of sections: No History of : No Date of last menstrual period: 03/30/24 BARBIE: 01/04/25 Gestational Age (weeks): 37 Gestational Age (days): 5 Gestational age based on last menstrual period: 37 Indication for induction: medical complication History of present illness: 39-year-old 6 para 4 admit to labor and delivery for induction of labor. Patient was a transfer from Dr. Maynard's office at 33 weeks. Last period March 30, 2024. EDC January 04, 2025. Patient reports that she had a history of epilepsy when she was a child. Her last seizure was at 5 years old. She had a cholecystectomy. Denies social habits. With this patient was diagnosed with GDM on diet and metformin 500 mg twice daily. She also has developed gestational hypertension. Patient will be started on labetalol during labor. Patient is O+, antibody screen negative, RPR nonreactive, rubella, hepatitis B negative, hep C negative, HIV negative, GC and Chlamydia were negative. 1 hour and 3-hour were elevated. GBS is negative. NIPT and carrier screens were negative. And patient has had 2 anatomy scans at [facility] because of AMA History of Present Dating criteria: LMP confirmed by 1st trimester US Adequate Care: Yes Ultrasounds: normal 1st trimester US and normal mid trimester US Obstetrical complications: gestational diabetes and gestational hypertension Medical complications: none Labs Labs: Positive: Rubella Titre, Negative: RPR, Hepatitis B, HIV, Chlamydia, Gonorrhea and Group Beta Strep and Unknown: Herpes Type 1, Herpes Type 2 and Covid-19 Review of Systems Review of Systems Systems Reviewed: All systems reviewed, normal except as documented Past Medical History Surgical History SURGICAL: Negative Section Meds Home Medications and Allergies Home Medications ?Medication ?Instructions ?Recorded ?Confirmed ?Type mv-mn no.97-folic 180 mcg-dha 25 1 tab PO DAILY supple ment 11/28/24 12/19/24 History mg-herb no.293 25 mg chewable tablet (Alive Daily Support ) metformin 500 mg tablet 500 mg PO BID 12/19/2412/19 History Allergies Allergy/AdvReac Type Severity Reaction Status Date / Time No Known Allergies Allergy Verified 12/19/24 02:16 OB Exam Physical Exam Vital signs: Temp Pulse Resp BP Pulse Ox 98.4 F 78 18 129/64 98 12/19/24 02:33 12/19/24 06:31 12/19/24 02:33 12/19/24 06:31 12/19/24 06:42 Narrative: Alert and oriented. Normal heart rate and rhythm. Lungs clear no wheezes. Gravid abdomen. Gynecoid pelvis. Estimated weight 7 pounds. Vaginal exam on admission was long, 1, posterior. Thick. Soft. heart category 1 with accelerations and moderate variability and occasional contractions Detailed Labor and Delivery Exam Dilation (cm): 1 Effacement (%): thick Cervix position: posterior station: -1 Consistency: soft Presentation: Vertex Membranes: intact Baseline heart rate: 140 monitor accelerations: 15x15 monitor decelerations: None terminal operator variability: Moderate (11-25) Contraction frequency (min): occ Contraction duration (sec): mild Tachysystole: No Contraction intensity: Mild OB Results Labs 12/19/24 02:30 12/19/24 02:30 Labs: Short CBC 12/19/24 Range/Units 02:30 WBC 9.3 (3.6-11.0) Thou/mm3 Hgb 11.9 L (12.0-16.0) g/dL Hct 33.5 L (36.0-46.0) % Plt Count 248 (140-440) Thou/mm3 BMP 12/19/24 02:30 Sodium 138 Potassium 4.1 Chloride 106 Carbon Dioxide 19.4 L BUN 6 L Creatinine 0.5 L Glucose 97 Calcium 9.0 Liver Function 12/19/24 Range/Units 02:30 Total Bilirubin 0.4 (0.3-1.2) mg/dL AST 20 (0-34) U/L ALT 10 (10-49) U/L Alkaline Phosphatase 129 H (46-116) U/L Albumin 4.3 (3.5-5.0) gm/dL Urine 12/19/24 Range/Units 02:30 Urine Color Colorless A (Lt Yel-Yel) Urine Clarity Clear (Clear/Hazy) Urine pH 6.5 (5.0-7.0) Ur Specific [place] 1.006 (1.001-1.035) Urine Protein 1+ A (Neg - Trace) Urine Glucose (UA) Negative (Negative) OB Assessment & Plan Assessment and Plan (1) Advanced maternal age (AMA) in : Status: Acute (2) Normal labor and delivery: Status: Acute (3) Gestational [-induced] hypertension without significant proteinuria, complicating childbirth: Status: Acute Additional Plan Induction method: per misoprostol protocol Plan: induction, anticipate NVD and consult MD aguilera
[2024-12-19] MEDS: LABETALOL 100 MG TABLET 200 MG PO ×2 (08:31→20:52)
[2024-12-20] VITALS (109 sets, daily range): BP systolic 121–173; BP diastolic 56–81; PULSE 60–93; RESP 14–18; TEMP 36.6–37; O2SAT 90–100
--- NOTE | 2024-12-20 04:34 | PD.LDPN ---
Documentation for date of: 12/20/24 OB Labor Progress Note Pain Control Pain control: tolerating well Pelvic Exam Dilation (cm): 1.5 Effacement (%): 50 station: -3 Amniotic membrane status: Intact Contractions Monitor mode: External Contraction frequency: 3-6 Contraction phase: Resting Contraction intensity: Mild Status status: Category l
[2024-12-20] MEDS: LABETALOL 100 MG TABLET 200 MG PO ×2 (08:50→20:41)
--- NOTE | 2024-12-20 09:39 | ESPR_ITS ---
Documentation for date of: 12/20/24 OB Labor Progress Note Pelvic Exam Dilation (cm): 1.5 Effacement (%): 50 station: -2 Amniotic membrane status: Intact Contractions Monitor mode: External Contraction frequency: 4-5 Contraction phase: Resting Contraction intensity: Mild Status status: Category l Assessment and Plan Comments: Note for cervical jackson balloon placement Wendy is a 39yo with SIUP at 37w5d undergoing IOL for GHTN (treated with labetalol) and T2DM on metformin. Her labor is being managed by MARIELA Granda. She had IOL started with cervidil and then switched to PO cytotec. She has been a bit discouraged since last cervical exam was 1cm. Because of this, I offered to place a cervical jackson balloon to assist the IOL process. BPs normal to mild range Labs show normal Hgb/plt/creatinine/LFTs. urine p:c 2.07. Cat I FHRT. I discussed jackson balloon placement with patient (RN translated Macedonian) and patient was amenable. Cook jackson cervical balloon placed with 40cc NS in uterine balloon only. Patient tolerated procedure well. Discussed contractions will intensify temporarily until balloon falls out, offered IV pain medication if she would like it. She plans for epidural later in labor. Continue cytotec. Closely observe bp's CEFM Safe to proceed Anna Wilks MD
[2024-12-20] MEDS: OXYTOCIN in NS 30 units 30 UNIT/500 ML BAG IV (13:21)
[2024-12-20] MEDS: RINGERS LACTATED 1000 ML 1,000 ML 125 ML IV (13:21)
--- NOTE | 2024-12-20 14:54 | PD.LDPN ---
Documentation for date of: 12/20/24 OB Labor Progress Note Pain Control Pain control: tolerating well Pelvic Exam Dilation (cm): 3-4 Effacement (%): 50 station: -1 Amniotic membrane status: Intact Contractions Monitor mode: External Contraction frequency: 3-6 Contraction phase: Resting Contraction intensity: Mild Status status: Category l
[2024-12-20] MEDS: OXYTOCIN in NS 30 units 30 UNIT/500 ML BAG 6 UNIT IV (19:00)
[2024-12-21] VITALS (309 sets, daily range): BP systolic 116–197; BP diastolic 55–114; PULSE 61–112; RESP 14–18; TEMP 36.5–37.3; O2SAT 84–100
[2024-12-21] MEDS: LABETALOL 100 MG TABLET 200 MG PO (06:12)
[2024-12-21 06:14] LABS: Amphetamine/Metham Scrn,Ur OB Negative (Negative); Benzoylecgonine Screen, Ur OB Negative (Negative); Opiate Screen,Urine OB Negative (Negative); THC Screen,Urine OB Negative (Negative)
--- NOTE | 2024-12-21 08:01 | PD.LDPN ---
Documentation for date of: 12/21/24 OB Labor Progress Note Pain Control Pain control: tolerating well and epidural Pelvic Exam Dilation (cm): 5-6 Effacement (%): 60 station: -3 Amniotic membrane status: Ruptured Contractions Monitor mode: Internal Contraction frequency: x1 Contraction pattern: Coupling Contraction phase: Resting Contraction intensity: Moderate Status status: Category l Assessment and Plan Assessment: induction ongoing CNM Management MD Consulted (describe details below): Yes
[2024-12-21] MEDS: RINGERS LACTATED 1000 ML 1,000 ML 125 ML IV ×2 (10:02→14:21)
[2024-12-21] MEDS: LABETALOL 100 MG TABLET 400 MG PO ×2 (14:16→21:30)
--- NOTE | 2024-12-21 14:19 | PD.LDPN ---
Documentation for date of: 12/21/24 OB Labor Progress Note Pain Control Pain control: epidural Pelvic Exam Dilation (cm): 9 Effacement (%): 60 station: -1 Amniotic membrane status: Ruptured Contractions Monitor mode: Internal Contraction frequency: 3-4 Contraction pattern: Coupling Contraction phase: Resting Contraction intensity: Moderate Status status: Category ll
[2024-12-21] MEDS: OXYTOCIN INJ 10 UNIT/ML VIAL IM (15:56)
[2024-12-21] MEDS: OXYTOCIN in NS 20 units 20 UNIT/1,000 ML BAG 125 UNIT IV (15:57)
--- NOTE | 2024-12-21 16:21 | OBDSUM_ITS ---
Data ([place]) Data Hx Section: No : 6 Term: 4 : 0 Livin Abortions: Spontaneous & Theraputic: 1 Delivery Data ([place]) Labor Data Initiation of labor: Induction Induction/Augmentation Agent: Cytotec-PO, Cervidil, Cervical Balloon, Pitocin and Artificial ROM ROM date: 12/21/24 ROM time: 07:45 Amniotic membrane rupture type: Artificial Amniotic fluid description: Clear Delivery Data EDC: 01/04/25 EDC calculated by:: LMP/early US confirmation Date of arrival to unit: 12/19/24 Onset of labor date: 12/20/24 Onset of labor time: 20:00 Complete dilation date: 12/21/24 Complete dilation time: 14:30 [place] delivery date: 12/21/24 [place] delivery time: 15:52 Gestational age (weeks): 37 Gestational age (days): 5 Placenta delivery date: 12/21/24 Placenta delivery time: 15:57 Stage 1 total time: Labor - Stage 1 Duration 18 hours and 30 minutes Delivered by: Court Granda Delivery nurse: mariana White nurse: Evelyn Humphries Performance Improvement Manager at delivery: No Support person(s) at delivery: Children x3 and Other staff at delivery: Denae Bianchi RN, [facility] Delivery Method Delivery method: Normal Vaginal Delivery Presentation: Vertex position: OA Anesthesia Type Anesthesia Type: Epidural Delivery Room Medications Delivery room medications given: ancef 2 g q 6 Delivery room medications: Pitocin 10 u IM, Pitocin 20 u IV, Cytotec 800 NE and other (txa x2) Placenta Placenta delivery description: Spontaneous Episiotomy Episiotomy description: None Lacerations #1: Vaginal: 1st degree (small, extend to perineal skin) Perineal repair Sutures used for repair: 3.0 Vicryl EBL Estimated blood loss (ml): 400 Umbilical Cord cord description: 3 Vessels [place]ike Data ([place]) [place]ike Data order: 1 's gender: Male Identification band number: [id number] weight (gms): 2805 g Weight (pounds): 6 lbs and 2.9 ozs length: 47 cm 1 minute: 9 5 minutes: 9
[2024-12-21] MEDS: TRANEXAMIC ACID 1,000 MG IVPB 1,000 MG/100 ML BAG 200 MG IV (16:35)
[2024-12-21] MEDS: LABETALOL INJ 5 MG/ML VIAL 20 ML 20 MG IVP (17:03)
[2024-12-21] MEDS: ceFAZolin/D5W 2 GM IV 2 GM/100 ML BAG IV (17:15)
[2024-12-21] MEDS: DOCUSATE SOD 100 MG CAPSULE PO (21:30)
[2024-12-21 23:33] LABS: Basophils # (Auto) 0.0 Thou/mm3 (0.0-0.2); Basophils % (Auto) 0 % (0-2.5); Eosinophils # (Auto) 0.0 Thou/mm3 (0.0-0.5); Eosinophils % (Auto) 0 % (0-10); Hematocrit 29.9 % (36.0-46.0); Hemoglobin 10.0 g/dL (12.0-16.0); Immature Granulocytes Auto 0.05 Thou/mm3 (0.00-0.00); Lymphocytes # (Auto) 1.6 Thou/mm3 (1.0-4.8); Lymphocytes % (Auto) 12 % (10-50); Mean Corpuscular HGB Conc 33.4 g/dl (31.0-37.0); Mean Corpuscular Hemoglobin 30.8 pg (25.0-35.0); Mean Corpuscular Volume 92 fL (80-100); Monocytes # (Auto) 0.6 Thou/mm3 (0.0-0.8); Monocytes % (Auto) 5 % (0-12); Neutrophils # (Auto) 11.0 Thou/mm3 (1.8-7.7); Neutrophils % (Auto) 82 % (37-80); Nucleated Red Blood Cell # 0.00 Thou/mm3 (0.00-0.00); Nucleated Red Blood Cell % 0 /100 WBC (0); Platelet Count 197 Thou/mm3 (140-440); RDW Standard Deviation 46.5 fL (36.4-46.3); Red Blood Count 3.25 Miln/mm3 (4.00-5.20); White Blood Count 13.4 Thou/mm3 (3.6-11.0)
[2024-12-22] VITALS (30 sets, daily range): BP systolic 100–216; BP diastolic 54–154; PULSE 77–128; RESP 16–28; TEMP 36.8–38.9; O2SAT 94–99
--- NOTE | 2024-12-22 06:52 | ESPR_ITS ---
Subjective Subjective Interval history: no complaints of pain,no dizziness. no c/o of PIH Exam Vital Signs Temp Pulse Resp BP Pulse Ox O2 Del Method 98.7 F 77 16 136/78 H 99 Room Air 12/22/24 05:03 12/22/24 05:03 12/22/24 05:03 12/22/24 05:03 12/22/24 05:03 12/22/24 05:03 Narrative Exam Vital signs are stable. BP 136/78. Blood sugar after her evening meal was 176. Patient is currently taking metformin 500 twice daily. And she is also taking labetalol 400 twice daily. Breasts are soft. Fundus firm below the umbilicus. Abdomen is nontender. Uterus well involuted. Perineum intact no swelling. Small lochia. Negative Homans' sign. DTRs 2+ swelling Objective Labs 12/21/24 23:17 12/19/24 02:30 Labs: Laboratory Results - last 24 hr 12/21/24 23:17 WBC 13.4 H D RBC 3.25 L Hgb 10.0 L Hct 29.9 L MCV 92 MCH 30.8 MCHC 33.4 RDW Std Deviation 46.5 H Plt Count 197 D Neut % (Auto) 82 H Lymph % (Auto) 12 [place] % (Auto) 5 Eos % (Auto) 0 Baso % (Auto) 0 Neut # (Auto) 11.0 H Lymph # (Auto) 1.6 [place] # (Auto) 0.6 Eos # (Auto) 0.0 Baso # (Auto) 0.0 Immature Gran # (Auto) 0.05 H Absolute Nucleated RBC 0.00 Immature Gran % 0 Nucleated RBC % 0 Assessment & Plan Problem List (1) Advanced maternal age (AMA) in : Status: Acute (2) Normal labor and delivery: Status: Acute (3) Gestational [-induced] hypertension without significant proteinuria, complicating childbirth: Status: Acute Assessment Comment Assessment comment: 24 hr pp Plan Comment Plan Comment: Discharge home tomorrow morning. Continue labetalol 400 twice daily. Continue metformin 500 twice daily. Continue GDM diet. Encourage ambulation. Increase fluids. Discussed danger signs symptoms and ER precautions. Reviewed signs symptoms PIH with patient. Discussed signs symptoms of infection. Upon discharge patient will call her family practice provider and make an appointment for her diabetes. Time Spent With Patient Time: Total time spent is greater than 50% in coordination of care (as documented) at patient's floor/unit and/or counseling patient:
[2024-12-22] MEDS: DOCUSATE SOD 100 MG CAPSULE PO ×2 (09:57→21:16)
[2024-12-22] MEDS: LABETALOL 100 MG TABLET 400 MG PO ×2 (09:57→21:15)
--- NOTE | 2024-12-22 14:28 | PC.SS ---
DATA ANALYTICS DEVELOPER completed face to face assessment at bedside. Daughter and FOB were present in the room. DATA ANALYTICS DEVELOPER explained reason for visit which was for opioid use and to provide community resource list. Pt. denied history of opioid use but was receptive to community resource list. Pt. denied substance use. DATA ANALYTICS DEVELOPER provided community resources which included the pamphlet for mental health and substance use agencies, [facility] resource flyer, resources to [facility]. Pt. states she does not receive WIC or food stamps. Pt. delivered at 37 weeks 6 days and it was a vaginal delivery. Pt. reports no medical concerns for the and infant passed the hearing exam. Pt is breast feeding the infant and the consolation was offered however pt. declined. Pt. reports she has baby supplies. Pt. stated that the infants pediatric will be at [facility]. Transportation will be provided by FOB upon d/c. At this time SS has not issues or concerns with pt.
--- NOTE | 2024-12-22 16:14 | PC.NURSE ---
1614: RN CALLED SSW GEORGES TO REPORT A EPDS OF 14 SSW REPORTED WHEN ROUNDING EARLIER THEY SPOKE WITH PATIENT AND PROVIDED RESOURCES REGARDING DEPRESSION AND ANXIETY NO FURTHER CONSULT IS NEEDED AT THIS TIME.
--- NOTE | 2024-12-22 16:28 | EKG_ITS ---
[facility] Test Date: 2024-12-22 Pat Name: NOHEMI MCKAY [facility] Gender: Female Medical Appointment Scheduler: NOÉ : 1985 Requested By: Anna Jaimes Order Number: [id number] Reading MD: Anna Jaimes Measurements Intervals [place] Rate: 102 P: 40 ME: 139 QRS: 19 QRSD: 96 T: 46 QT: 302 QTc: 394 Interpretive Statements SINUS TACHYCARDIA ABNORMAL RHYTHM ECG No previous ECG available for comparison /store/S0/[id number].pdf
[2024-12-22] MEDS: LABETALOL INJ 5 MG/ML VIAL 20 ML 20 MG IVP (16:49)
[2024-12-22] MEDS: Magnesium Sulfate 4 GM Ivpb 4 GM/50 ML BAG IV (17:01)
[2024-12-22 17:18] LABS: Collection Type, Urine Clean Catch
[2024-12-22 17:18] LABS: Basophils # (Auto) 0.0 Thou/mm3 (0.0-0.2); Basophils % (Auto) 0 % (0-2.5); Eosinophils # (Auto) 0.0 Thou/mm3 (0.0-0.5); Eosinophils % (Auto) 0 % (0-10); Hematocrit 32.4 % (36.0-46.0); Hemoglobin 10.6 g/dL (12.0-16.0); Immature Granulocytes Auto 0.04 Thou/mm3 (0.00-0.00); Lymphocytes # (Auto) 1.6 Thou/mm3 (1.0-4.8); Lymphocytes % (Auto) 12 % (10-50); Mean Corpuscular HGB Conc 32.7 g/dl (31.0-37.0); Mean Corpuscular Hemoglobin 30.5 pg (25.0-35.0); Mean Corpuscular Volume 93 fL (80-100); Monocytes # (Auto) 0.7 Thou/mm3 (0.0-0.8); Monocytes % (Auto) 5 % (0-12); Neutrophils # (Auto) 10.3 Thou/mm3 (1.8-7.7); Neutrophils % (Auto) 81 % (37-80); Nucleated Red Blood Cell # 0.00 Thou/mm3 (0.00-0.00); Nucleated Red Blood Cell % 0 /100 WBC (0); Platelet Count 208 Thou/mm3 (140-440); RDW Standard Deviation 48.8 fL (36.4-46.3); Red Blood Count 3.47 Miln/mm3 (4.00-5.20); White Blood Count 12.6 Thou/mm3 (3.6-11.0)
[2024-12-22 17:19] LABS: Alanine Aminotransferase 12 U/L (10-49); Albumin, Serum 3.8 gm/dL (3.5-5.0); Albumin/Globulin Ratio 1.5 (1.2-2.2); Alkaline Phosphatase 125 U/L (46-116); Anion Gap 13 (7-16); Aspartate Amino Transferase 35 U/L (0-34); BUN/Creatinine Ratio 10 Ratio (12-20); Bilirubin,Total 0.2 mg/dL (0.3-1.2); Blood Urea Nitrogen < 5 mg/dL (9-23); Calcium 8.6 mg/dL (8.3-10.6); Calcium (Corrected) 8.8 mg/dL (8.5-10.1); Carbon Dioxide 18.4 mMol/L (20.0-31.0); Chloride 107 mMol/L (98-107); Creatinine (Component) 0.5 mg/dL (0.6-1.3); Estimated Creatinine Clearance 153.8 mL/min (>60); Globulin 2.6 gm/dL (2.3-3.5); Glucose 98 mg/dL (74-106); Magnesium 1.1 mg/dL (1.6-2.6); Osmolality,Calculated 272 (275-295); Potassium 4.2 mMol/L (3.4-5.1); Sodium 138 mMol/L (136-145); Total Protein 6.4 gm/dL (5.7-8.2); Uric Acid 5.6 mg/dL (3.1-7.8); eGFR > 60 See Note
[2024-12-22] MEDS: MAGNESIUM SULF 20 GM IVPB 20 GM/500 ML BAG IV (17:28)
[2024-12-22 18:05] LABS: Bacteria,Urine 3+; Bilirubin,Urine Negative (Negative); Blood,Urine 2+ (Negative); Color,Urine Lt-Yellow (Lt Yel-Yel); Glucose, Urine Negative (Negative); Ketones,Urine Negative (Negative); Leukocyte Esterase,Urine Positive (Negative); Nitrite,Urine Negative (Negative); PH,Urine 6.0 (5.0-7.0); Protein,Urine Negative (Neg - Trace); RBC,Urine 5 /hpf (0-3); Specific Gravity,Urine 1.008 (1.001-1.035); Squamous Epithelial Cell,Urine < 1 /hpf (0-5); Urobilinogen,Urine Negative mg/dL (0.0-1.0); WBC,Urine 5 /hpf (0-5)
[2024-12-22 18:06] LABS: Clarity,Urine Hazy (Clear/Hazy)
[2024-12-22 18:08] LABS: Creatinine,Random Urine 37 mg/dL (30-125); Protein Total, Random Urine 18 mg/dL (1-14)
--- NOTE | 2024-12-22 18:31 | XR_ITS ---
Examination: AP chest single view TECHNIQUE: Portable sitting AP chest single view. Date and time: December 22, 2024, 1850 hours. COMPARISON: September 28, 2021. INDICATIONS: Sepsis alert sepsis protocol today. FINDINGS: Mild prominence left ventricle. Mild vascular congestion. No lobar pneumonia. The osseous structures are intact. IMPRESSION: No lobar pneumonia.
[2024-12-22 18:32] LABS: Fibrinogen 678 mg/dL (175-375); INR 0.9 (0.9-1.3); Partial Thromboplastin Time 27.6 Seconds (22.0-36.0); Prothrombin Time 10.0 Seconds (9.0-12.2)
[2024-12-22] MEDS: IBUPROFEN TAB 400 MG TABLET 800 MG PO (18:33)
--- NOTE | 2024-12-22 18:53 | PD.EVENT ---
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 She was feeling shaky with chest pain at that time when sitting up in the chair in her room, some chills but not feverish. Pulse was elevated in the 100's, afebrile, severe range bp's. I requested for EKG to be performed (resulted sinus tachy), labetalol 20mg IV x1 to be given and IV MgSO4 4g/2g to be initiated. Patient's chest pain quickly subsided. However, at 1751 she developed a temperature of 101.1F. At that time I requested for CXR to be done, urine culture and 2 blood cultures to be performed in addition to starting Unasyn 3g IV Q6hr. Labs done: WBC 12.6 (a decrease from 13.4 yesterday) Hgb 10.6 Plt 208 creatinine 0.5 AST 35 ALT 12 Urine p:c 0.48, but 2+ blood present on the urinalysis so not true clean catch Awaiting CXR report and blood/urine cultures. Continue Unasyn 3g IV Q6hr Continue IV MgSO4 2g/hr with Mg checks q6hr and neuro checks per protocol Will continue to closely monitor Anna Wilks MD
[2024-12-22 18:58] LABS: Magnesium 2.5 mg/dL (1.6-2.6)
[2024-12-22] MEDS: AMPICILLIN/SULBAC INJ 3 GM in SODIUM CHLORIDE 0.9% (POP) 100 ML IV (19:10)
[2024-12-22] MEDS: ACETAMINOPHEN 325 MG TABLET 650 MG PO (19:48)
[2024-12-23] VITALS (26 sets, daily range): BP systolic 101–148; BP diastolic 57–93; PULSE 74–110; RESP 15–36; TEMP 36.7–39.5; O2SAT 94–99
[2024-12-23] MEDS: AMPICILLIN/SULBAC INJ 3 GM in SODIUM CHLORIDE 0.9% (POP) 100 ML IV (00:14)
[2024-12-23 00:57] LABS: Magnesium 3.0 mg/dL (1.6-2.6)
[2024-12-23] MEDS: ACETAMINOPHEN 325 MG TABLET 650 MG PO ×3 (02:28→23:11)
[2024-12-23] MEDS: IBUPROFEN TAB 400 MG TABLET 800 MG PO ×2 (02:51→16:15)
[2024-12-23] MEDS: CLINDAMYCIN 900MG IVPB 900 MG in PRE-MIXED 1 BAG 50 MG IV ×3 (04:40→22:03)
[2024-12-23] MEDS: MAGNESIUM SULF 20 GM IVPB 20 GM/500 ML BAG IV ×2 (04:41→04:44)
[2024-12-23] MEDS: Ampicillin Inj 2,000 MG in SODIUM CHLORIDE 0.9% (POP) 100 ML 100 MG IV ×3 (06:16→18:38)
[2024-12-23 08:54] LABS: Magnesium 3.4 mg/dL (1.6-2.6)
[2024-12-23] MEDS: DOCUSATE SOD 100 MG CAPSULE PO ×2 (09:31→20:56)
[2024-12-23] MEDS: LABETALOL 100 MG TABLET 400 MG PO ×2 (09:32→20:55)
--- NOTE | 2024-12-23 09:34 | PC.NURSE ---
0933 Spoke with MD Wilks at nurses station about patient's BP of 123/62, asked if the Labetalol 400mg should be held, she stated to give the med as scheduled.
--- NOTE | 2024-12-23 09:59 | PD.LDPPPRG ---
Subjective Subjective Interval history: Patient feels improved overall, no specific complaints. She is receiving IV MgSO4 and has jackson in place, on bedrest with SCDs on. She was started on Unasyn last night when she spiked a fever of 101.1F at 1745. She then spiked another fever at 0220 to 102.8F, so Unasyn was stopped and Triple IV abx were initiated (Gentamicin, Clindamycin, Ampicillin). She has had no fevers since then (last documented elevated temp 100.9F at 0359). This morning she has no subjective fevers/chills, no CP/SOB. Tolerating regular diet without nausea/vomiting. Lochia tapering as expected. Exam Vital Signs Temp Pulse Resp BP Pulse Ox O2 Del Method 98.1 F 89 15 123/62 96 Room Air 12/23/24 08:00 12/23/24 09:32 12/23/24 08:00 12/23/24 09:32 12/23/24 08:00 12/23/24 08:00 Narrative Exam General: well developed, well nourished, no acute distress, conversant Cardiac: normal heart rate Lungs: breathing without distress Abdomen: soft, post-gravid, non-tender, no rebound or guarding, Fundus firm at u-3cm. Extremities: no pain with palpation of calves, trace edema of BLE Objective Labs 12/22/24 16:30 12/22/24 16:30 Labs: Laboratory Results - last 24 hr 12/22/24 12/22/24 12/22/24 16:30 17:00 17:20 WBC 12.6 H RBC 3.47 L Hgb 10.6 L Hct 32.4 L MCV 93 MCH 30.5 MCHC 32.7 RDW Std Deviation 48.8 H Plt Count 208 Neut % (Auto) 81 H Lymph % (Auto) 12 [place] % (Auto) 5 Eos % (Auto) 0 Baso % (Auto) 0 Neut # (Auto) 10.3 H Lymph # (Auto) 1.6 [place] # (Auto) 0.7 Eos # (Auto) 0.0 Baso # (Auto) 0.0 Immature Gran # (Auto) 0.04 H Absolute Nucleated RBC 0.00 Immature Gran % 0 Nucleated RBC % 0 PT 10.0 INR 0.9 APTT 27.6 Fibrinogen 678 H* Sodium 138 Potassium 4.2 Chloride 107 Carbon Dioxide 18.4 L Anion Gap 13 BUN < 5 L Creatinine 0.5 L Estim Creat Clear Calc 153.8 eGFR > 60 BUN/Creatinine Ratio 10 L Glucose 98 Calculated Osmolality 272 L Uric Acid 5.6 Calcium 8.6 Corrected Calcium 8.8 Magnesium 1.1 L Total Bilirubin 0.2 L AST 35 H ALT 12 Alkaline Phosphatase 125 H Total Protein 6.4 Albumin 3.8 Globulin 2.6 Albumin/Globulin Ratio 1.5 Ur Collection Type Clean Catch Urine Color Lt-Yellow Urine Clarity Hazy Urine pH 6.0 Ur Specific [place] 1.008 Urine Protein Negative Urine Glucose (UA) Negative Urine Ketones Negative Urine Blood 2+ A Urine Nitrite Negative Urine Bilirubin Negative Urine Urobilinogen (Auto) Negative Ur Leukocyte Esterase Positive Urine RBC 5 H Urine WBC 5 Ur Squamous Epith Cells < 1 Urine Bacteria 3+ A Ur Random Creatinine 37 U Random Total Protein 18 H 12/22/24 12/23/24 12/23/24 18:32 00:31 07:59 WBC RBC Hgb Hct MCV MCH MCHC RDW Std Deviation Plt Count Neut % (Auto) Lymph % (Auto) [place] % (Auto) Eos % (Auto) Baso % (Auto) Neut # (Auto) Lymph # (Auto) [place] # (Auto) Eos # (Auto) Baso # (Auto) Immature Gran # (Auto) Absolute Nucleated RBC Immature Gran % Nucleated RBC % PT INR APTT Fibrinogen Sodium Potassium Chloride Carbon Dioxide Anion Gap BUN Creatinine Estim Creat Clear Calc eGFR BUN/Creatinine Ratio Glucose Calculated Osmolality Uric Acid Calcium Corrected Calcium Magnesium 2.5 3.0 H 3.4 H Total Bilirubin AST ALT Alkaline Phosphatase Total Protein Albumin Globulin Albumin/Globulin Ratio Ur Collection Type Urine Color Urine Clarity Urine pH Ur Specific [place] Urine Protein Urine Glucose (UA) Urine Ketones Urine Blood Urine Nitrite Urine Bilirubin Urine Urobilinogen (Auto) Ur Leukocyte Esterase Urine RBC Urine WBC Ur Squamous Epith Cells Urine Bacteria Ur Random Creatinine U Random Total Protein Assessment & Plan Problem List (1) Severe pre-eclampsia, condition or complication: Status: Acute Assessment and plan: Wendy is a 39yo [id number] s/p uncomplicated after undergoing IOL for GHTN and T2DM (on metformin) at 37+wk, now PPD2. She was having an uneventful recovery until the afternoon of PPD1 when a Rapid Response was called at 1620. She was feeling shaky with chest pain at that time when sitting up in the chair in her room, some chills but not feverish. Pulse was elevated in the 100's, afebrile, severe range bp's. EKG was performed (resulted sinus tachy), labetalol 20mg IV x1 was given and IV MgSO4 4g/2g was initiated. Patient's chest pain quickly subsided. However, at 1751 she developed a temperature of 101.1F. At that time Unasyn 3g IV Q6hr was initiated, CXR was performed (resulted normal), urine culture and 2 blood cultures were obtained. Other labs performed: WBC 12.6 (from 13.4) Hgb 10.6 Plt 208 creatinine 0.5 AST 35 ALT 12 Urine p:c 0.48, but 2+ blood present on the urinalysis so not true clean catch She then spiked another fever at 0220 to 102.8F, so Unasyn was stopped and Triple IV abx (Gentamicin, Clindamycin, Ampicillin) were started. She has had no fevers since then (last documented elevated temp 100.9F at 0359). Vitals wnl (normotensive since initiating IV MgSO4), benign exam. Plan: -Continue routine care -Continue Triple IV abx (Gentamicin, Clindamycin, Ampicillin) until 24hr afebrile (last temp 0359 on 12/23) -Continue IV MgSO4 2g/hr for 24 total hours with Mg checks q6hr and neuro checks per protocol. Bedrest with SCDs until IV MgSO4 is complete. -Continue labetalol 400mg PO BID -Awaiting blood/urine cultures -Regular diet -Continue to closely monitor vitals (2) fever, current hospitalization: Status: Acute (3) Gestational diabetes: Status: Acute (4) Advanced maternal age (AMA) in : Status: Acute Time Spent With Patient Time: Total time spent is greater than 50% in coordination of care (as documented) at patient's floor/unit and/or counseling patient:
--- NOTE | 2024-12-23 12:38 | XR_ITS ---
Examination: CTA chest with intravenous contrast 2-D reconstructions 3-D reconstructions, vascular Date and time of exam: December 23, 2024 1447 hours INDICATIONS: Chest pain shortness of breath today CTDI: vol (mGy) 24.3 DLP: (mGycm) 314 Technique: Multiple axial sections of the thorax have been obtained. 3 mm slice thickness, from below the hemidiaphragms to above the apices of the lungs. Mediastinal and lung density settings have been obtained. 2-D sagittal and coronal reconstructions. 3-D angiographic renderings, 3-D volume renderings, 3D post processing, vascular maximum intensity projections obtained. Contrast administered is 100 cc Isovue-370. Low dose protocols were performed. One or more of the following dose reduction techniques were used; automated exposure control, adjustment of the mA and/or KV according to patient size, use of iterative reconstruction technique. Findings: No thoracic aortic aneurysm dilatation or dissection No pulmonary artery emboli No pneumonia or pulmonary edema or pleural disease Mild enlargement cardiac contour, mild vascular congestion No visualized liver or splenic lesion IMPRESSION: Negative for pulmonary artery emboli No pneumonia or pulmonary edema Mild vascular congestion
[2024-12-23 13:44] LABS: Magnesium 3.2 mg/dL (1.6-2.6)
[2024-12-23 16:23] LABS: COVID-19 Antigen (In-House) Negative (Negative); Influenza A Ag Negative; Influenza B Ag Negative
[2024-12-23 19:08] LABS: Magnesium 2.9 mg/dL (1.6-2.6)
[2024-12-23 22:06] LABS: Gentamicin, Random < 0.5 mcg/mL (4.0-10.0)
[2024-12-24] VITALS (16 sets, daily range): BP systolic 115–149; BP diastolic 65–84; PULSE 71–93; RESP 15–17; TEMP 36.6–39.4; O2SAT 95–98
[2024-12-24] MEDS: Ampicillin Inj 2,000 MG in SODIUM CHLORIDE 0.9% (POP) 100 ML 100 MG IV ×4 (00:04→17:02)
[2024-12-24] MEDS: IBUPROFEN TAB 400 MG TABLET 800 MG PO (00:33)
--- NOTE | 2024-12-24 01:55 | PD.EVENT ---
Documentation for date of: 12/24/24 Event Note Event Note: RN notified me that patient had another fever up to 103F. She has a pattern now of fevers every 9 to 12 hours. Blood cultures, CXR, CTPA, flu and covid swabs all negative. Urine cx pending. Suspect that this may be related to a viral etiology rather than bacterial. Will consult ID in the morning, for now continue Triple IV Abx Cooling measures + tylenol/motrin IV MgSO4 24hr course complete, bp's have been normal. Continue labetalol 400mg PO BID. Anna Wilks MD
[2024-12-24] MEDS: CLINDAMYCIN 900MG IVPB 900 MG in PRE-MIXED 1 BAG 50 MG IV ×2 (05:30→13:35)
[2024-12-24 05:52] LABS: Basophils # (Auto) 0.0 Thou/mm3 (0.0-0.2); Basophils % (Auto) 0 % (0-2.5); Eosinophils # (Auto) 0.0 Thou/mm3 (0.0-0.5); Eosinophils % (Auto) 0 % (0-10); Hematocrit 26.4 % (36.0-46.0); Hemoglobin 9.1 g/dL (12.0-16.0); Immature Granulocytes Auto 0.06 Thou/mm3 (0.00-0.00); Lymphocytes # (Auto) 1.3 Thou/mm3 (1.0-4.8); Lymphocytes % (Auto) 14 % (10-50); Mean Corpuscular HGB Conc 34.5 g/dl (31.0-37.0); Mean Corpuscular Hemoglobin 30.7 pg (25.0-35.0); Mean Corpuscular Volume 89 fL (80-100); Monocytes # (Auto) 0.6 Thou/mm3 (0.0-0.8); Monocytes % (Auto) 7 % (0-12); Neutrophils # (Auto) 7.0 Thou/mm3 (1.8-7.7); Neutrophils % (Auto) 78 % (37-80); Nucleated Red Blood Cell # 0.00 Thou/mm3 (0.00-0.00); Nucleated Red Blood Cell % 0 /100 WBC (0); Platelet Count 205 Thou/mm3 (140-440); RDW Standard Deviation 47.3 fL (36.4-46.3); Red Blood Count 2.96 Miln/mm3 (4.00-5.20); White Blood Count 9.0 Thou/mm3 (3.6-11.0)
[2024-12-24] MEDS: DOCUSATE SOD 100 MG CAPSULE PO ×2 (08:32→20:10)
[2024-12-24] MEDS: LABETALOL 100 MG TABLET 400 MG PO (08:33)
--- NOTE | 2024-12-24 12:20 | PD.LDPPPRG ---
Subjective Subjective Interval history: Wendy feels well currently, but did have episode of fevers/chills at 2300 last night. IV MgSO4 was discontinued yesterday evening after full 24hr course. She is ambulating no lightheadedness/dizziness. Voiding spontaneously, no issues. Tolerating regular diet without nausea/vomiting. Lochia tapering as expected. No CP/SOB. No cough, congestion. No pelvic pain. No HAGAN, vision changes or RUQ pain. Exam Vital Signs Temp Pulse Resp BP Pulse Ox O2 Del Method 100.5 F H 89 17 143/84 H 96 Room Air 12/24/24 12:00 12/24/24 12:00 12/24/24 12:00 12/24/24 12:00 12/24/24 12:00 12/24/24 12:00 Narrative Exam General: well developed, well nourished, no acute distress, conversant Cardiac: normal heart rate Lungs: breathing without distress Abdomen: soft, gravid, non-tender, no rebound or guarding Extremities: no pain with palpation of calves Objective Labs 12/24/24 05:00 12/22/24 16:30 Labs: Laboratory Results - last 24 hr 12/23/24 12/23/24 12/23/24 13:13 15:30 18:37 WBC RBC Hgb Hct MCV MCH MCHC RDW Std Deviation Plt Count Neut % (Auto) Lymph % (Auto) [place] % (Auto) Eos % (Auto) Baso % (Auto) Neut # (Auto) Lymph # (Auto) [place] # (Auto) Eos # (Auto) Baso # (Auto) Immature Gran # (Auto) Absolute Nucleated RBC Immature Gran % Nucleated RBC % Magnesium 3.2 H 2.9 H Random Gentamicin Influenza A (Rapid) Negative Influenza B (Rapid) Negative SARS-CoV-2 Ag (Rapid) Negative 12/23/24 12/24/24 21:13 05:00 WBC 9.0 RBC 2.96 L Hgb 9.1 L Hct 26.4 L MCV 89 MCH 30.7 MCHC 34.5 RDW Std Deviation 47.3 H Plt Count 205 Neut % (Auto) 78 Lymph % (Auto) 14 [place] % (Auto) 7 Eos % (Auto) 0 Baso % (Auto) 0 Neut # (Auto) 7.0 Lymph # (Auto) 1.3 [place] # (Auto) 0.6 Eos # (Auto) 0.0 Baso # (Auto) 0.0 Immature Gran # (Auto) 0.06 H Absolute Nucleated RBC 0.00 Immature Gran % 1 H Nucleated RBC % 0 Magnesium Random Gentamicin < 0.5 L Influenza A (Rapid) Influenza B (Rapid) SARS-CoV-2 Ag (Rapid) Assessment & Plan Problem List (1) fever, current hospitalization: Status: Acute Assessment and plan: Wendy is a 39yo [id number] s/p uncomplicated after undergoing IOL for GHTN and T2DM (on metformin) at 37+wk, now PPD3. She was having an uneventful recovery until the afternoon of PPD1 when a Rapid Response was called at 1620. She was feeling shaky with chest pain at that time when sitting up in the chair in her room, some chills but not feverish. Pulse was elevated in the 100's, afebrile, severe range bp's. EKG was performed (resulted sinus tachy), labetalol 20mg IV x1 was given and IV MgSO4 4g/2g was initiated. Patient's chest pain quickly subsided. However, at 1751 she developed a temperature of 101.1F. At that time Unasyn 3g IV Q6hr was initiated, CXR was performed (resulted normal), urine culture and 2 blood cultures were obtained. Other labs performed: WBC 12.6 (from 13.4) Hgb 10.6 Plt 208 creatinine 0.5 AST 35 ALT 12 Urine p:c 0.48, but 2+ blood present on the urinalysis so not true clean catch She then spiked another fever at 0220 to 102.8F, so Unasyn was stopped and Triple IV abx (Gentamicin, Clindamycin, Ampicillin) were started. She has continued to spike fevers up to 103F every 9 to 12 hours like clockwork. Despite WBC count trending from 13.4 to 9. Despite blood cultures negative at 24hr x2. (Urine culture still pending.) On 12/23 CTPA was performed to rule out PE, and it was negative. Flu and Covid swabs were also done and negative. BPs are normotensive to mild range since stopping IV MgSO4 after full 24hr course. No s/sx of worsening pre-eclampsia. Plan: -Continue routine care -Consult placed for ID physician Dr. Ferrell. Appreciate recommendations. -For now, continue Triple IV abx (Gentamicin, Clindamycin, Ampicillin) -Continue labetalol 400mg PO BID -Awaiting urine culture -Regular diet -Continue to closely monitor vitals (2) Severe pre-eclampsia, condition or complication: Status: Acute (3) Gestational diabetes: Status: Acute (4) Advanced maternal age (AMA) in : Status: Acute Time Spent With Patient Time: Total time spent is greater than 50% in coordination of care (as documented) at patient's floor/unit and/or counseling patient:
[2024-12-24] MEDS: ACETAMINOPHEN 325 MG TABLET 650 MG PO (16:03)
--- NOTE | 2024-12-24 17:18 | ESPR_ITS ---
Subjective Subjective Interval history: asked to see for fevers. pt is and is ama. no pe noted on ct. no hx of tb.cx neg at 48h Exam Vital Signs Temp Pulse Resp BP Pulse Ox O2 Del Method 101.8 F H 93 16 123/76 95 Room Air 12/24/24 16:58 12/24/24 16:00 12/24/24 16:00 12/24/24 16:00 12/24/24 16:00 12/24/24 16:00 Objective - Internal Medicine Labs 12/24/24 05:00 12/22/24 16:30 Labs: Laboratory Results - last 24 hr 12/23/24 12/23/24 12/24/24 18:37 21:13 05:00 WBC 9.0 RBC 2.96 L Hgb 9.1 L Hct 26.4 L MCV 89 MCH 30.7 MCHC 34.5 RDW Std Deviation 47.3 H Plt Count 205 Neut % (Auto) 78 Lymph % (Auto) 14 [place] % (Auto) 7 Eos % (Auto) 0 Baso % (Auto) 0 Neut # (Auto) 7.0 Lymph # (Auto) 1.3 [place] # (Auto) 0.6 Eos # (Auto) 0.0 Baso # (Auto) 0.0 Immature Gran # (Auto) 0.06 H Absolute Nucleated RBC 0.00 Immature Gran % 1 H Nucleated RBC % 0 Magnesium 2.9 H Random Gentamicin < 0.5 L Assessment & Plan A&P Narrative fuo post likely pelvic thrombophlebitis ua neg. 5 wbc is nothing cx looks to be neg so far as nothing is reported at about 48hr , ama, gest dm pih hx of esbl, unverified will try po augmentin and stop the other abx and try some lovenox. if fevers ross, that is likely the answer as cxr is neg. will stop back on sunday am if she remains in house at that time Time Spent With Patient Time: Total time spent is greater than 50% in coordination of care (as documented) at patient's floor/unit and/or counseling patient:
--- NOTE | 2024-12-24 17:30 | PC.NURSE ---
Dr. Ferrell in to see patient
--- NOTE | 2024-12-24 18:43 | ESCONSULT_ITS ---
RE: NOHEMI MCKAY : 1985 DATE OF CONSULTATION: 12/24/2024 REFERRING PHYSICIANS: Dr. Rosa Ferrell and Dr. Dejesus. REASON FOR CONSULTATION: fever in a 39-year-old. HISTORY OF PRESENT ILLNESS: The patient is a 39-year-old admitted on 12/19/2024, who had a baby on 12/21/2024. She had long labor. Baby was born vaginally. She is having fevers after delivery for some time now and has failed to respond to antibiotic therapy. Blood cultures have been negative. A few more days of antibiotics plus some different approach including anticoagulants seemed reasonable. 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 There are no signs of PE or DVT clinically and ct neg for PE. She is ambulatory, alert, and cooperative. She is 6 para 5 and has history of treated latent TB and negative chest imaging as noted. PAST SURGICAL HISTORY: Prior cholecystectomy. ALLERGIES: NONE NOTED. IMMUNIZATIONS: Last tetanus is that she was given in [place]. She is not sure about COVID vaccine, but she does take flu shot every year and has had COVID vaccine and pneumococcal vaccine. FAMILY HISTORY: Positive for diabetes and hypertension. SOCIAL HISTORY: She lives at home with her children and her , who stepped out at the moment. One of her sons is with her at the moment. She is a lifelong nonsmoker. As noted, her chest imaging is negative. PHYSICAL EXAMINATION: On exam, patient looks well. HEENT, heart, lungs and abdomen are benign. She did appear to have had long labor and does not report any unusual heavy bleeding. So, we could probably give her some Lovenox fairly safely. I am going to take the liberty of stopping her tranexamic acid and her steroids and other medications given as a precaution. I will give her Augmentin for another couple of days as an outpatient. If the Lovenox seems to work by Sunday, if not or even , she can go home on the Augmentin and whatever anticoagulants you want to give her. We simply will give Coumadin for a few days and transition to that, but it depends on your choice of anticoagulant. So, we will continue Lovenox for pelvic phlebitis, but there is no specific dosing as there is not a trial that I am aware of. I will check on her again moving forward, but probably not until Sunday. DT: 17:45:44 TT: 18:25:00 Ref: [id number] - TID: [id number] MTDD
[2024-12-24] MEDS: AMOXICILLIN/POT CLAV 875 TABLET 1 TAB PO (20:09)
[2024-12-24] MEDS: LABETALOL 100 MG TABLET 200 MG PO (20:10)
[2024-12-24] MEDS: ENOXAPARIN SOD INJ 100 MG/ML SYRINGE 90 MG SC (20:11)
[2024-12-25] VITALS (9 sets, daily range): BP systolic 121–164; BP diastolic 66–88; PULSE 67–80; RESP 16–18; TEMP 36.8–38.8; O2SAT 96–99
[2024-12-25] MEDS: ACETAMINOPHEN 325 MG TABLET 650 MG PO (01:18)
--- NOTE | 2024-12-25 06:10 | PD.IDPROG ---
Subjective Subjective Interval history: fevers shorter. hard to prove pelvic thrombophlebitis Exam Vital Signs Temp Pulse Resp BP Pulse Ox O2 Del Method 98.7 F 80 16 136/80 H 96 Room Air 12/25/24 04:18 12/25/24 04:18 12/25/24 04:18 12/25/24 04:18 12/25/24 04:18 12/25/24 04:18 Narrative Exam not seen, data reviewed Objective - Internal Medicine Labs 12/24/24 05:00 12/22/24 16:30 Assessment & Plan A&P Narrative fuo post likely pelvic thrombophlebitis ua neg. 5 wbc is nothing cx looks to be neg so far as nothing is reported at about 48hr , ama, gest dm pih hx of esbl, unverified will try po augmentin and stop the other abx and try some lovenox. if fevers ross, that is likely the answer as cxr is neg. will stop back on sunday am if she remains in house at that time, which she probably will Time Spent With Patient Time: Total time spent is greater than 50% in coordination of care (as documented) at patient's floor/unit and/or counseling patient:
[2024-12-25] MEDS: LABETALOL 100 MG TABLET 200 MG PO ×2 (08:45→20:53)
[2024-12-25] MEDS: DOCUSATE SOD 100 MG CAPSULE PO ×2 (08:46→20:49)
[2024-12-25] MEDS: AMOXICILLIN/POT CLAV 875 TABLET 1 TAB PO ×2 (08:46→20:49)
[2024-12-25] MEDS: ENOXAPARIN SOD INJ 100 MG/ML SYRINGE 90 MG SC ×2 (08:46→20:49)
--- NOTE | 2024-12-25 18:42 | PD.LDPPPRG ---
Subjective Subjective Interval history: Patient is a 39-year-old G6 now P5015 status post vaginal delivery by Court 12/21/2024. She has had spiking fevers after delivery about every [address] Farshad Ferrell from infectious disease was called and consulted on the patient. She has no significant white count chest x-ray is negative blood cultures and urine cultures were negative. He DC'd all antibiotics and started the patient on Augmentin. She is on Lovenox for possible pelvic thrombophlebitis at IDs recommendation. The plan will be to discontinue 2 IV lines. Keep one IV in place. Follow with the CBC in the morning. Can continue Augmentin and Lovenox per ID. Patient would like to go home. She is resting comfortably today. She denies nausea vomiting or diarrhea. She reports only chills when she has a fever. No breast complaints. No urinary complaints. No flank tenderness. No shortness of breath. No cough. Exam Vital Signs Temp Pulse Resp BP Pulse Ox O2 Del Method 98.3 F 78 18 138/79 H 98 Room Air 12/25/24 15:47 12/25/24 15:47 12/25/24 15:47 12/25/24 15:47 12/25/24 15:47 12/25/24 15:47 Narrative Exam Tmax was 101 degrees at approximately 1 AM. Constitutional Constitutional: no acute distress Comments: Fundus firm nontender. No significant edema or erythema. Objective Labs 12/24/24 05:00 12/22/24 16:30 Assessment & Plan Problem List (1) fever, current hospitalization: Status: Acute Assessment and plan: Infectious disease consulted. Possible pelvic thrombophlebitis. On Augmentin. On Lovenox. All other IV antibiotics discontinued. All cultures negative to date. Patient feels well between fevers. (2) Severe pre-eclampsia, condition or complication: Problem details: Blood pressures currently stable. Status: Acute (3) Gestational diabetes: Status: Acute (4) Advanced maternal age (AMA) in : Status: Acute Time Spent With Patient Time: Total time spent is greater than 50% in coordination of care (as documented) at patient's floor/unit and/or counseling patient: Time with patient: less than 15 minutes
[2024-12-26 00:03] VITALS: BP 155/81; PULSE 68; RESP 18; TEMP 37.2; O2SAT 97
[2024-12-26 03:51] VITALS: BP 153/83; PULSE 66; RESP 18; TEMP 36.8; O2SAT 97
[2024-12-26 05:55] LABS: Basophils # (Auto) 0.0 Thou/mm3 (0.0-0.2); Basophils % (Auto) 0 % (0-2.5); Eosinophils # (Auto) 0.1 Thou/mm3 (0.0-0.5); Eosinophils % (Auto) 1 % (0-10); Hematocrit 26.4 % (36.0-46.0); Immature Granulocytes Auto 0.02 Thou/mm3 (0.00-0.00); Lymphocytes # (Auto) 2.1 Thou/mm3 (1.0-4.8); Lymphocytes % (Auto) 36 % (10-50); Mean Corpuscular HGB Conc 32.2 g/dl (31.0-37.0); Mean Corpuscular Hemoglobin 29.6 pg (25.0-35.0); Mean Corpuscular Volume 92 fL (80-100); Monocytes # (Auto) 0.6 Thou/mm3 (0.0-0.8); Monocytes % (Auto) 11 % (0-12); Neutrophils # (Auto) 2.9 Thou/mm3 (1.8-7.7); Neutrophils % (Auto) 51 % (37-80); Nucleated Red Blood Cell # 0.00 Thou/mm3 (0.00-0.00); Nucleated Red Blood Cell % 0 /100 WBC (0); Platelet Count 245 Thou/mm3 (140-440); RDW Standard Deviation 47.6 fL (36.4-46.3); Red Blood Count 2.87 Miln/mm3 (4.00-5.20); White Blood Count 5.7 Thou/mm3 (3.6-11.0)
[2024-12-26 06:01] LABS: Hemoglobin 8.5 g/dL (12.0-16.0)
[2024-12-26 08:00] VITALS: BP 158/83; PULSE 65; RESP 16; TEMP 36.6; O2SAT 97
[2024-12-26 08:15] VITALS: BP 158/83; PULSE 65
[2024-12-26] MEDS: LABETALOL 100 MG TABLET 300 MG PO (08:15)
[2024-12-26] MEDS: DOCUSATE SOD 100 MG CAPSULE PO (08:15)
[2024-12-26] MEDS: AMOXICILLIN/POT CLAV 875 TABLET 1 TAB PO (08:16)
[2024-12-26] MEDS: ENOXAPARIN SOD INJ 100 MG/ML SYRINGE 90 MG SC (08:17)
--- NOTE | 2024-12-26 08:28 | XR_ITS ---
Examination: CT abdomen with intravenous contrast CT pelvis with intravenous contrast 2-D coronal reconstructions 2-D sagittal reconstructions Date and time of exam:December 26, 2024 0925 hours INDICATIONS: fevers. CTDI: vol (mGy) 9.60 DLP: (mGycm) 571 Technique: Multiple axial sections of the abdomen and pelvis have been obtained. 64 slice high-resolution scanner used. 3 mm axial sections have been obtained, post intravenous injection 60 cc [id number] 2-D sagittal, coronal reconstructions obtained. Low dose protocols were performed. One or more of the following dose reduction techniques were used; automated exposure control, adjustment of the mA and/or KV according to patient size, use of iterative reconstruction technique. Findings: Mild bibasilar pneumonia, mild bilateral pleural effusions No focal liver or splenic lesion Absent gallbladder No pancreatic or adrenal mass No renal or ureteral calculi Aorta normal size enlarged uterus with vascular posterior fundus Trace free fluid in the pelvis No abdominal or pelvic abscess Urinary bladder intact Intact osseous structures IMPRESSION: Mild bibasilar pneumonia, small bilateral pleural effusions enlarged uterus No abdominal or pelvic abscess
[2024-12-26 10:10] LABS: D-Dimer 2290 ng/mL (<600)
--- NOTE | 2024-12-26 10:32 | ESPR_ITS ---
Subjective Subjective Interval history: afebrile since early am on 12/25, Exam Vital Signs Temp Pulse Resp BP Pulse Ox O2 Del Method 97.9 F 65 16 158/83 H 97 Room Air 12/26/24 08:00 12/26/24 08:15 12/26/24 08:00 12/26/24 08:15 12/26/24 08:00 12/26/24 08:00 Narrative Exam exam benign, dressed for home. son states she may go home. that is ok with me Objective - Internal Medicine Labs 12/26/24 05:40 12/22/24 16:30 Labs: Laboratory Results - last 24 hr 12/26/24 05:40 WBC 5.7 RBC 2.87 L Hgb 8.5 L Hct 26.4 L MCV 92 MCH 29.6 MCHC 32.2 RDW Std Deviation 47.6 H Plt Count 245 D Neut % (Auto) 51 Lymph % (Auto) 36 [place] % (Auto) 11 Eos % (Auto) 1 Baso % (Auto) 0 Neut # (Auto) 2.9 Lymph # (Auto) 2.1 [place] # (Auto) 0.6 Eos # (Auto) 0.1 Baso # (Auto) 0.0 Immature Gran # (Auto) 0.02 H Absolute Nucleated RBC 0.00 Immature Gran % 0 Nucleated RBC % 0 D-Dimer 2290 H Assessment & Plan A&P Narrative fuo post likely pelvic thrombophlebitis with longer labor and older age ua neg. 5 wbc is nothing cx looks to be neg so far as nothing is reported at about 48hr , ama, gest dm pih hx of esbl, unverified will try po augmentin and stop the other abx and try some lovenox. as fevers gone, that is likely the answer as cxr is neg. home at your discretion. finish augmentin on sunday and use the anticoagulant you like best for what ever duration you feel is best as there are no studies on this matter that I am aware of will see again prn. Time Spent With Patient Time: Total time spent is greater than 50% in coordination of care (as documented) at patient's floor/unit and/or counseling patient:
--- NOTE | 2024-12-26 10:41 | PD.LDDS ---
DS: Providers Provider Date of admission: 12/19/24 01:57 Primary care physician: Physician No Primary/Family Admitting Provider: Gustavo Dejesus MD Attending Provider on Admission: Court Granda CNM Consults: 12/21/24 18:36 Referral Routine Comment: 12/24/24 12:23 Consult to Infectious Diseases Routine Comment: fevers q9-12 hours after uncomplicated Consulting Provider: Farshad Ferrell Attending Provider on DC: Gustavo Dejesus MD Discharging Provider: Gustavo Dejesus MD DS: Diagnosis Discharge Diagnosis (1) Pneumonia: Status: Acute (2) Gestational diabetes: Status: Acute (3) Severe pre-eclampsia, condition or complication: Status: Acute (4) fever, current hospitalization: Status: Acute (5) Pre-eclampsia, severe, third trimester: Status: Acute (6) Gestational [-induced] hypertension without significant proteinuria, complicating childbirth: Status: Acute Problem List Completed Was Problem List Reviewed/Reconciled?: Yes Summary/Hosp Course Brief History: 39-year-old 6 para 4 admit to labor and delivery for induction of labor. Patient was a transfer from Dr. Maynard's office at 33 weeks. Last period March 30, 2024. EDC January 04, 2025. Patient reports that she had a history of epilepsy when she was a child. Her last seizure was at 5 years old. She had a cholecystectomy. Denies social habits. With this patient was diagnosed with GDM on diet and metformin 500 mg twice daily. She also has developed gestational hypertension. Patient will be started on labetalol during labor. Patient is O+, antibody screen negative, RPR nonreactive, rubella, hepatitis B negative, hep C negative, HIV negative, GC and Chlamydia were negative. 1 hour and 3-hour were elevated. GBS is negative. NIPT and carrier screens were negative. And patient has had 2 anatomy scans at [facility] because of AMA Peripartum Data Delivery Method: Normal Vaginal Delivery Episiotomy Description: None Time Spent with Patient Time attestation: Total time spent providing and/or coordinating discharge services: Exam Vital Signs Temp Pulse Resp BP Pulse Ox O2 Del Method 97.9 F 65 16 158/83 H 97 Room Air 12/26/24 08:00 12/26/24 08:15 12/26/24 08:00 12/26/24 08:15 12/26/24 08:00 12/26/24 08:00 Discharge Plan Plan Patient Disposition: HOME (Self Care) Patient condition on transfer: Stable Prescriptions/Referrals Prescriptions/Med Rec: New docusate sodium 100 mg Capsule 100 mg PO BID 10 Days Qty: 20 0RF labetalol 400 mg tablet 400 mg PO BID 30 Days Qty: 60 0RF ibuprofen 800 mg tablet 800 mg PO Q8H PRN (Reason: See Comments) 10 Days Qty: 20 0RF amoxicillin-pot clavulanate 875-125 mg tablet 1 tab PO BID 7 Days Qty: 14 0RF Continued Alive Daily Support 180 mcg-25 mg- 25 mg tablet,chewable 1 tab PO DAILY metformin 500 mg tablet 500 mg PO BID No Action (DME) Blood Glucose Test Strip See Rx Instructions .MEDSUPPLY Qty: 10 0RF Rx Instructions: As directed (DME) lancets Misc See Rx Instructions .MEDSUPPLY Qty: 100 0RF Rx Instructions: As directed Referrals: Gustavo Dejesus MD [Physician] - No Primary/Family,Physician [Primary Care Provider] - Patient/Caregiver Discharge Instructions Discharge Activity: activity as tolerated and other Other Discharge Activity Instructions:: vaginal rest and no heavy lifting for 6 weeks Other Discharge Diet Instructions: diabetic diet Education Materials: After a Vaginal , Understanding Preeclampsia, Treating Pneumonia, When You Have Pneumonia, Gestational Hypertension Print Language: Macedonian Activity Restrictions/Additional Instructions: follow up with your OBGYN within 1 week for blood pressure check, call clinic for appointment Stand Alone Forms: Estelle Award Info., Patient Portal Info Letter Discharge Order Discharge Orders: Discharge (Routine); Ordered 12/26/24 Ordered By: Gustavo Dejesus Planned Discharge Date 12/26/24
[2024-12-26 10:52] LABS: INR 1.0 (0.9-1.3); Partial Thromboplastin Time 34.7 Seconds (22.0-36.0); Prothrombin Time 10.9 Seconds (9.0-12.2)
== END 2024-12-26 12:06 | disposition home or self-care (01) | DRG 560 ==
LOC: S4SX 12-21 16:10 → S4NX 12-21 18:09
PROVIDERS: Obstetrics & Gynecology; Admitting Provider Obstetrics & Gynecology; Visit Provider Advanced Practice Midwife
DX: O13.4 Gestational [pregnancy-induced] hypertension without significant proteinuria, complicating childbirth (principal); O24.425 Gestational diabetes mellitus in childbirth, controlled by oral hypoglycemic drugs; Z37.0 Single live birth; Z3A.37 37 weeks gestation of pregnancy; O70.0 First degree perineal laceration during delivery; O99.354 Diseases of the nervous system complicating childbirth; G40.909 Epilepsy, unspecified, not intractable, without status epilepticus; O99.52 Diseases of the respiratory system complicating childbirth; J18.9 Pneumonia, unspecified organism; O86.4 Pyrexia of unknown origin following delivery; Z79.01 Long term (current) use of anticoagulants; O14.14 Severe pre-eclampsia complicating childbirth; O14.15 Severe pre-eclampsia, complicating the puerperium
CPT/HCPCS: 36415; 71045; 71275; 74177; 76805; 80053; 80170; 80307; 81001; 82570; 83735; 84156; 84550; 85025; 85379; 85384; 85610; 85730; 86780; 86850; 86900; 86901; 87040; 87086; 87502; 87811; 93005; A4649; J0290; J0295; J0689; J1580; J1650; J2590; J2795; J3010; J3475; J3490; J7050; J7120; Q9967; S0077; S0191; A9270; J0736; J1920

== ENCOUNTER 2024-12-30 11:29 | Outpatient (AMB) | payer MEDICAID, SELFPAY ==
--- NOTE | 2024-12-30 11:50 | AMBOBPPN_ITS ---
Vital Signs 12/30/24 11:51 Height 1.6 m Height Method Stated Weight 82.327 kg Weight Measurement Method Standing Scale BMI 32.1 BP 131/84 H Blood Pressure Source Automatic Cuff Blood Pressure Location Right Upper Arm Position Sitting Respiration 17 Pulse 90 Pulse Source Monitor Temp 97.6 F Temp Source Temporal Artery Scan Pulse Oximetry (%) 95 Oxygen Delivery Method Room Air Allergies/Home Meds Allergies & Medications Allergies No Known Allergies Allergy (Verified 12/30/24 11:51) Medication Reconciliation mv-mn no.97-folic 180 mcg-dha 25 mg-herb no.293 25 mg chewable tablet (Alive Daily Support ) 1 tab PO DAILY supplement 11/28/24 [History Confirmed 12/30/24] blood sugar diagnostic (Blood Glucose Test strips) #10 ea 12/09/24 [Rx Confirmed 12/30/24] lancets #100 ea 12/09/24 [Rx Confirmed 12/30/24] metformin 500 mg tablet 500 mg PO BID 12/19/24 [History Confirmed 12/30/24] docusate sodium 100 mg capsule 100 mg PO BID 10 days #20 caps 12/23/24 [Rx Confirmed 12/30/24] ibuprofen 800 mg tablet 800 mg PO Q8H PRN See Comments 10 days #20 tabs 12/23/24 [Rx Confirmed 12/30/24] amoxicillin 875 mg-potassium clavulanate 125 mg tablet 1 tab PO BID 7 days #14 tabs 12/26/24 [Rx Confirmed 12/30/24] nifedipine 60 mg tablet,extended release 60 mg PO QDAY 30 days #30 tabs 12/26/24 [Rx Confirmed 12/30/24] Intake Visit Data Collection New Patient or Established: Established Patient (seen at [facility] within 3 years) Reason for Visit:: 1WEEK Seen by Clinical Staff ONLY (RN/MA): No 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 Required: No Do You Feel Safe at Home: Yes Authorities Contacted: N/A PCP or OBGYN visit in last 3 months: Yes Date of Last PCP or OBGYN visit: 12/26/24 Hx Now: No Are you currently on any form of Control: No Pain Present Currently: No Pain Scale Used: Srinivasan-Cotto/Numerical Pain scale:: 0 Smoking Status Smoking Status: Never smoker 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: Past Medical History Past Medical History: Yes Hx Neurological Disorders, No Hx Cardiac Disorders, Yes Hx Hypertension (GHTN), No Hx Cancer, Yes Hx Blood Disorders, Yes Hx Anemia, Yes Hx Gastrointestinal Disorders, No Hx Renal Disease, No Hx Diabetes Mellitus Type 1 and Yes Hx Diabetes Mellitus Type 2 Questionnaires Covid-19 Vaccine Questionnaire Has patient been vacinated for Covid-19 Have you been vacinated for Covid-19: No Social History Living Situation History Marital Status: Lives With: Family Housing: House Tobacco History Smoking Status: Never smoker Second Hand Smoke Exposure: No Alcohol History Alcohol Intake: Never Domestic Abuse History Do You Feel Safe at Home: Yes EPDS - PP Depression Screening Devine Pospartum Depression Screen I have been able to laugh and see the funny side of things: (0) As much as I always could I have looked forward with enjoyment to things: (0) As much as I ever did I have blamed myself unnecessarily when things went wrong: (0) No, never I have been anxious or worried for no good reason: (0) No, not at all I have felt scared or panicky for no very good reason: (0) No, not at all Things have been getting on top of me: (0) No, I have been coping as well as ever I have been so unhappy that I have had difficulty sleeping: (0) No, not at all I have felt sad or miserable: (0) No, not at all I have been so unhappy that I have been crying: (0) No, never The thought of harming myself has occurred to me: (0) Never EPDS completed yes Care OB Visit Log OB Flowsheet Initial Weight: Not Recorded Date -?-?-?-?-?-?-?-?-?-?-?-?- EGA Weight BP Alb Glu CTX Pres Fundal ht FHR Mov Dilation Station Effacement Hx Notes Visit Note 11/17/24 -?-?-?-?-?-?-?-?-?-?-?-?- 33w 1d 86.75 kg 121/80 absent cephalic 32 145 active 39 yo ob transfer from [facility] with records, GDM on metformin 500 bid. compliannt with glucose testing and diet. fetus active. c/o dysuria. refused mfm referal due to locartion. denies ptl signs,no leaking, fetus active low dose asa. continue PNV, sched sono at [facility] for growth sono, patient cancelled sono with MFM/too far, schedule NST/BPP. continue metformin 500 bid. continue GDM diet, sched with OB, sugars after breakfast elevated 75%. continue to walk 40 min daily, discuss fkc bid and PTL prwcaution, discuss GDM diet. A1c and ua today. rtc 2 week 11/28/24 -?-?-?-?-?-?-?-?-?-?-?-?- 34w 5d 89.131 kg 133/82 absent cephalic 35 144 39y/o at 34+5 weeks gestation with GDM on metformin BID, presents for routine visit. Denies CTX, LOF, VB; reports good FM Pl an: continue metformin, initiate BPP [id number], schedule IOL ~12/28/24, f/u in 2 weeks. 12/09/24 -?-?-?-?-?-?-?-?-?-?-?-?- 36w 2d 89.358 kg 134/84 absent cephalic 36 145 active test once daily, compliant with metformin 500 daily. fetus active, no c/o labor. refuses f/u growth sono. stop ASA, IOL 12/28, review labor precaution. fkc bid. continue metformin 500 bid, review GDM diet. continue BIweekly NST BPP. sched sono at [facility] for dates. refill lancet and strip, stop ASA, discuss labor precaution,fkc bid, rtc 1 week with GDM log. GBS today IOL 12/28/24, review labor pr ecaution. fkc bid. continue metformin 500 bid, review GDM diet. continue BIweekly NST BPP. sched sono at [facility] for dates. refill lancet and strip, stop ASA, discuss labor precaution,fkc bid, rtc 1 week with GDM log. GBS today. nuswab 12/17/24 -?-?-?-?-?-?-?-?-?-?-?-?- 37w 3d 89.868 kg 154/88 absent cephalic 37 146 active 1 -3 25 report compliance with GDM diet and glucose monitoring. sugar at goal 90%. patient left [facility] 12/15 from [facility]. patient was schedule for IOL due to gestational HTN. patient has been checking BP at home, BP remains consistent elevated. BP today: 154/88. denies PIH complaints. patient is hesitant to IOL, denies UC, no VB or leaking. fetus active, DTR +2,no edema,no clonus discuss with patient IOL. discuss gestational hypertention and diabetes to her and fetus. today, patient agrees to BST/BPP in am and IOL if needed, agrees to schedule IOL on 12/19/24. . discuss PIH precaution, fkc bid. discuss danger s/s and ER precaution. rtc 1 week discuss with patient IOL. kristine cheatham . review GDM diet and BS log gestational hypertention and diabetes to her and fetus. today, patient agrees to BST/BPP in am and IOL if needed, agrees to schedule IOL on 12/19/24. . discuss PIH precaution, fkc bid. discuss danger s/s and ER precaution. rtc 1 week BARBIE Calculator Estimated Delivery Date Method Current WG Current Estimate 01/04/25 LMP (Certain) 39w 2d Notes Visit Date: 11/17/24 Last Updated by: Court Granda CNM 39 yo GDM/diet. lmp 03/30/25. EDC 01/08/25, 1hr gtt: 169, A1: 5.9. O+,abs-, rpr;;nr, rub imm, HBSAG-,hiv-, HC-, GC./CT-. . NIPT/af/,carrier screen- HPI Interval History: 39-year-old 6 para 5 for 1 week visit. Patient had an induction of labor December 21. Baby boy weighing 6 pounds 2. was uncomplicated and uneventful. Patient had a first-degree perineal tear that was repaired. And was doing well. After 24 hours patient blood pressure went up rapidly. Patient was given labetalol push and also started on magnesium sulfate for 24 hours to control her blood pressure. Also patient developed temperature greater than 101 and antibiotics were started. With change in medication for her blood pressure became lower. Patient was started on labetalol 200 3 times daily. And patient also was treated with triple ant ibiotics and infection control Dr Ferrell came to see patient. Patient was then diagnosed with pneumonia. And patient's course was a week. Patient was discharged home with nifedipine 60 extended release daily. She is also taking amoxicillin solon 3 times daily for 7 days. Patient is not taking metformin at this time. She is breast-feeding. Patient reports that she feels much better and she is happy. Patient has good support at home. Denies signs and symptoms of PIH. Patient also is compliant about monitoring her temperature and blood pressures. And those vital signs are remaining stable. Patient is afebrile Was or delivery considered high risk: Yes Delivery type: vaginal (1st perineal) Was labor induced: yes and medically indicated (GDM, gest hypertention) Gestational age at delivery (weeks): 37.5 Delivery date: 12/21/24 Delivering provider: jocelynn Granda Delivery complications: Yes Delivery complications comment: Patient's blood pressure is became severe 24 hours . Patient was started on magnesium sulfate for 24 hours along with labetalol push and labetalol 200 3 times daily. Patient also spiked a temperature over 101 and was treated with triple antibiotics. Patient also had a referral with infection control Dr Ferrell for diagnosis. 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 Lungs clear no wheezes. Abdomen is soft nontender. Uterus well involuted. Perineum is intact no lacerations. No swelling. Small lochia. Negative Homans' sign. 2+ DTRs. No edema no swelling. Breasts are soft General Limitations: no limitations General Appearance: alert, in no apparent distress, comfortable, cooperative, healthy appearing, well developed and well groomed Head Head exam: atraumatic, normocephalic and normal inspection Chest Chest inspection: Present normal inspection and symmetric chest wall rise Resp Respiratory exam: Present normal lung sounds bilaterally Card Cardiovascular exam: Present regular rate, normal rhythm and normal heart sounds Psych Psychiatric exam: Present normal affect and normal mood Office Procedures OB Clinic LOC & Office Proc's Nursing/Assessment Patient Status: Established Patient OB Clinic Nursing Assessment: Medication Reconciliation, Update PMH in EMR and Vital Signs OB Clinic Coordination of Care: Complex Care and Chronic Disease 1-5, Consent,records obtained, informed consent, Education Simp Pt/Fam and Staff clarify orders Established Patient Charge Established Patient Point Assignment: 85 Antepartum Initial or Follow-up Antepartum Initial Visit: Yes Assessment & Plan Diagnosis / Problem List (1) Routine Follow-Up: (2) Severe pre-eclampsia, condition or complication: Status: Acute (3) Gestational diabetes: Status: Acute (4) Pneumonia: Status: Acute Care Reviewed delivery summary and any complications: Yes Uterus involuted to: 3 below Perineal / incision healing noted: Yes Screened for depression: Yes Depression counseling provided: No Discussed family planning & contraception: Yes Contraception planned: vasectomy Counseling on safe resumption of sexual activity: Yes Counseling on gradual excercise: Yes Discussed and concerns (describe), provided support: Yes Counseled on good nutrition, hydration, and self care: Yes Reviewed vaccine status: No Chronic & current problems reconciled on problem list: Yes Additional follow up plans: refer pt at 6 week pp to family practice for management care discussed; questions answered: feeding Follow up: routine/prn Additional counseling & anticipatory guidance provided: complete amoxicillin. continue Nifediine 60mg ER daily, continue to monitor BP and Temp at home. discuss ER precaution and parameters (FP) Tobacco Smoking Status: Never smoker
[2024-12-30 11:51] VITALS: BP 131/84; PULSE 90; RESP 17; TEMP 36.4; O2SAT 95; BMI 32.1
== END 2024-12-30 12:09 | disposition home or self-care (01) ==
LOC: HODSOBC 11:29
PROVIDERS: Supervising Provider Advanced Practice Midwife; Visit Provider Advanced Practice Midwife
DX: Z39.2 Encounter for routine postpartum follow-up (principal); Z39.1 Encounter for care and examination of lactating mother; O14.15 Severe pre-eclampsia, complicating the puerperium; O24.435 Gestational diabetes mellitus in puerperium, controlled by oral hypoglycemic drugs; O99.53 Diseases of the respiratory system complicating the puerperium; J18.9 Pneumonia, unspecified organism

== ENCOUNTER 2025-01-13 22:01 | Emergency (ER) | payer MEDICAID, SELFPAY ==
[2025-01-13 22:09] VITALS: BP 156/80; PULSE 111; RESP 18; TEMP 37.4; O2SAT 98
--- NOTE | 2025-01-13 22:23 | XR_ITS ---
Examination: PA lateral chest 2 views TECHNIQUE: Upright PA and lateral chest 2 views Date and time: January 13, 2025, 10:37 PM INDICATIONS: Blurred vision headaches, pneumonia 3 weeks ago post antibiotic therapy FINDINGS: Normal heart size No pneumonia or pulmonary edema. Intact osseous structures IMPRESSION: No pneumonia identified
--- NOTE | 2025-01-13 22:26 | EDNOTE_ITS ---
ED Allergic Reaction RME/HPI General Chief complaint: Allergic Reaction Stated complaint: POSSIBLE ALLERGIC REACTION TO NIFEDIPINE Time Seen by Provider: 01/13/25 22:21 Arrival date/time: 01/13/25 22:01 39F with history of gestational DM and HTN presents to ED with 1 week of generalized swelling, some itchiness, blurry vision and HAGAN. Patient gave about 3 weeks ago and was put on nefedipine, which patient has been taking. After delivery, patient's BP went up and patient was given both magnesium and labetalol. Patient was also diagnosed with PNA after delivery and finished a course of amoxicillin. Limitations: no limitations Related Data Home Medications ?Medication ?Instructions ?Recorded ?Confirmed mv-mn no.97-folic 180 mcg-dha 25 1 tab PO DAILY supple ment 11/28/24 12/30/24 mg-herb no.293 25 mg chewable tablet (Alive Daily Support ) metformin 500 mg tablet 500 mg PO BID 12/19/2412/30 Previous Rx's ?Medication ?Instructions ?Recorded blood sugar diagnostic (Blood #10 ea 12/09/24 Glucose Test strips) lancets #100 ea 12/09/24 nifedipine 60 mg tablet,extended 60 mg PO QDAY 30 days #30 tabs 12/26/24 release Allergies Allergy/AdvReac Type Severity Reaction Status Date / Time No Known Allergies Allergy Verified 01/13/25 22:03 Review of Systems Review of Systems Systems Reviewed: All systems reviewed, normal except as documented Constitutional Constitutional: Reports system reviewed and no additional complaints, except as documented, Reports as per HPI, Denies fever(s) and Reports headache(s) Eyes Eyes: Reports as per HPI and Reports blurry vision ENT Ears, Nose, Mouth, and Throat: Denies disequilibrium and Reports headache(s) Cardiovascular Cardiovascular: Reports system reviewed and no additional complaints, except as documented, Denies chest pain and Denies dyspnea Respiratory Respiratory: Reports system reviewed and no additional complaints, except as documented, Denies cough and Denies dyspnea Gastrointestinal Gastrointestinal: Reports system reviewed and no additional complaints, except as documented, Denies abdominal pain, Denies nausea and Denies vomiting Integumentary/Breasts Skin/Breast: Reports as per HPI, Reports pruritus and Reports skin swelling Neurologic Neurologic: Reports system reviewed and no additional complaints, except as documented, Denies confusion, Denies disequilibrium and Reports headache(s) Psychiatric Psychiatric: Denies confusion Past Medical History Past Medical History NEUROLOGIC: Positive Neurological Disorders, Seizures ( CHILD) and Epilepsy ( A CHILD) CARDIAC: Positive Hypercholesterolemia, Hypertension (GHTN) and Varicose Veins; Negative Cardiac Disorders or Congestive Heart Failure RESPIRATORY: Negative Chronic Obstructive Pulmonary Disease (COPD), Asthma or Bronchitis GASTROINTESTINAL: Positive Gastrointestinal Disorders, Pancreatitis and Obesity GENITOURINARY: Positive Genitourinary Disorders (CHOLECYSTECTOMY) and Neurogenic Bladder; Negative Renal Disease REPRODUCTIVE: Positive Previous Pregnancies MUSCULOSKELETAL: Positive Musculoskeletal Disorders and Fractures (BILAT ARM FX CHILD) ENDOCRINE: Positive Endocrine Disorders and Diabetes Mellitus Type 2; Negative Diabetes Mellitus Type 1 HEMATOLOGIC: Positive Blood Disorders and Anemia; Negative Sickle Cell Disease OTHER HISTORY: Positive Hospitalization (LABOR, CHOLECYSTECTOMY, PANCREATITIS) and Chicken Pox; Negative Autoimmune Disease, Falls, Blood Transfusions, Anesthesia Reactions or Cancer Family History FAMILY HISTORY: Positive Family Respiratory Disorders (ASTHMA- DAUGHTER) and Family Cardiac Disorders (HEART ATTACKS PATERNAL SIDE); Negative Family Psychiatric Problems, Family Gastrointestinal Problems, Family Cancer, Family Surgery or Family Anesthesia Reaction Surgical History SURGICAL: Negative Section Social History SMOKING STATUS: Never smoker SECOND HAND EXPOSURE: No ED Exam General Limitations: Present no limitations General appearance: Present alert and in no apparent distress Head Head exam: Present atraumatic Eye Eye exam: Present normal appearance, PERRL and EOMI ENT ENT exam: Present normal exam, normal oropharynx and mucous membranes moist Neck Neck exam: Present normal inspection, full ROM and trachea midline Chest Chest inspection: Present normal inspection and symmetric chest wall rise Respiratory Respiratory exam: Present normal lung sounds bilaterally Cardiovascular Cardiovascular exam: Present regular rate, normal rhythm and normal heart sounds Abdominal Exam Abdominal exam: Present soft and normal bowel sounds Extremities Exam Extremities exam: Present normal inspection and full ROM Back Exam Back exam: Present normal inspection and full ROM Neurological Exam Neurological exam: Present alert, oriented X3 and CN II-XII intact Psychiatric Psychiatric exam: Present normal affect and normal mood Skin Skin exam: Present warm, dry, intact and normal color Course Quality Measures none Orders Category Date Time Status Bedside COVID-19 Antigen Test NOW Care 01/13/25 22:31 Completed Bedside Influenza A&B Antigen Test NOW Care 01/13/25 22:[address] head/brain wo con Stat Exams 01/13/25 22:31 Completed XR chest 2V Stat Exams 01/13/25 22:23 Completed CBC Stat Lab 01/13/25 22:54 Completed CMP [Comprehensive Metabolic Panel] Stat Lab 01/13/25 22:54 Completed Lactate (Lactic Acid) Stat Lab 01/13/25 22:54 Completed Mag [Magnesium] Stat Lab 01/13/25 22:54 Completed Procalcitonin Stat Lab 01/13/25 22:54 Completed Urinalysis, C/S if Indicated Stat Lab 01/13/25 22:37 Completed Dexamethasone Inj [Decadron Inj] Med 01/13/25 22:23 Discontinued 10 mg PO X1 ONE DiphenhydrAMINE [Benadryl] Med 01/13/25 22:23 Discontinued 25 mg PO X1 ONE Famotidine [Pepcid] Med 01/13/25 22:23 Discontinued 20 mg PO X1 ONE Vital Signs Vital signs: Vital Signs Temperature 99.3 F 01/13/25 22:09 Pulse Rate 111 H 01/13/25 22:09 Respiratory Rate 18 01/13/25 22:09 Blood Pressure 156/80 H 01/13/25 22:09 Pulse Oximetry (%) 98 01/13/25 22:09 Oxygen Delivery Method Room Air 01/13/25 22:09 O2 at 98% on RA and WNLs Allergic Reaction MDM Narrative MDM Narrative:: 39F with history of gestational DM and HTN presents to ED with 1 week of generalized swelling, some itchiness, blurry vision and HAGAN. Patient gave about 3 weeks ago and was put on nefedipine, which patient has been taking. After delivery, patient's BP went up and patient was given both magnesium and labetalol. Patient was also diagnosed with PNA after delivery and finished a course of amoxicillin. Physical exam reveals normal pupil response and EOM. Some redness on cheecks. BLE mild swelling. Normal WOB. Patient is afebrile, calm, and alert. CT head unremarkable. CXR no more PNA. No leukocytosis. CMP unremarkable. Swabs neg. Procal/lactate normal. Meds improved symptoms. Rn Coronary Care Unit given. Patient data External records reviewed:: [facility] previous records Clinical information provided by:: patient Social determinants that could affect healthcare access:: none Patient has the following chronic illnesses:: gestation DM and HTN How is presenting disease/condition affected by chronic disease/condition?: exacerbated by Evaluation data The following diagnostics were reviewed and interpreted by me:: lab results and radiology exam(s) Lab and/or radiology exams considered but not ordered:: ordered Interpretation Summary: above Medications / Prescriptions Medications or Prescriptions considered but not ordered:: ordered Medication administrations:: Medication Administration History Discontinued Medications Dexamethasone Sodium Phosphate (Dexamethasone Sod Phos Inj 10 Mg/Ml Vial) 10 mg PO X1 ONE Stop: 01/13/25 22:24 Last Admin: 01/13/25 22:43 Dose: 10 mg Documented By: EF Comments: po Diphenhydramine HCl (Diphenhydramine 25 Mg Capsule) 25 mg PO X1 ONE Stop: 01/13/25 22:24 Last Admin: 01/13/25 22:43 Dose: 25 mg Documented By: EF Famotidine (Famotidine 20 Mg Tablet) 20 mg PO X1 ONE Stop: 01/13/25 22:24 Last Admin: 01/13/25 22:43 Dose: 20 mg Documented By: EF above Consultations Consultation(s) initiated? (list below): No Diagnosis Differential Diagnosis allergic reaction: anaphylaxis, allergic reaction, angioedema, contact dermatitis, adverse reaction to drug, viral enanthem, urticaria and other (pre-eclampsia) Most likely diagnosis given after review of the tests above:: drug adverse reaction Admission Indicated Admission indicated?: not indicated Admission Request Was there a request for admission?: No Disposition Plan Disposition Plan: Discharge Discharge Attestation Discharge Attestation: The patient and all family members were given an opportunity to ask questions and understood the discharge instructions. Discharge instructions specifically effects, indications for sooner follow up or return to the emergency department, and the expected course of current diagnosis. Patient condition: Stable Discharge Plan Plan Patient Disposition: HOME (Self Care) Discharge Disposition comment: Stable Prescriptions/Referrals Prescriptions/Med Rec: No Action Alive Daily Support 180 mcg-25 mg- 25 mg tablet,chewable 1 tab PO DAILY (DME) Blood Glucose Test Strip See Rx Instructions .MEDSUPPLY Qty: 10 0RF Rx Instructions: As directed (DME) lancets Misc See Rx Instructions .MEDSUPPLY Qty: 100 0RF Rx Instructions: As directed metformin 500 mg tablet 500 mg PO BID nifedipine 60 mg tablet extended release 60 mg PO QDAY 30 Days Qty: 30 2RF Referrals: Amita Cohen MD [Primary Care Provider] - In 1 week Problem List Clinical Impression: Drug reaction Patient/Caregiver Discharge Instructions Education Materials: ED Drug Reaction, Other Additional Instructions: Please follow-up with PCP within 24-48 hours and return immediately if symptoms worsen. Ask PCP/OBGYN if can switch off this med to another such as labetalol. 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 Felder
--- NOTE | 2025-01-13 22:31 | XR_ITS ---
Examination: CT brain head without contrast. 2-D sagittal coronal reconstructions Date and time of exam:January 13, 2025 11:07 PM COMPARISON: September 28, 2021 INDICATIONS: Blurred vision and dizziness 1 week CTDI: vol (mGy):48.5 DLP: (mGycm):941 Technique: Multiple CT axial sections of the brain have been obtained, 5 mm slice thickness. Contrast has not been administered. 2-D sagittal, coronal reconstructions have been obtained Low dose protocols were performed. One or more of the following dose reduction techniques were used; automated exposure control, adjustment of the mA and/or KV according to patient size, use of iterative reconstruction technique. Findings: No significant ventricular enlargement. Intra-axial or extra-axial hemorrhage density is not seen. No mass effect or midline shift Basal cisterns are not remarkable. Fourth ventricle is midline. Cranial vault intact. Impression: Negative for acute hemorrhage, mass effect or midline shift
[2025-01-13] MEDS: DEXAMETHASONE SOD PHOS INJ 10 MG/ML VIAL PO (22:43)
[2025-01-13] MEDS: FAMOTIDINE 20 MG TABLET PO (22:43)
[2025-01-13 22:46] LABS: Collection Type, Urine Clean Catch
[2025-01-13 22:55] LABS: Bilirubin,Urine Negative (Negative); Blood,Urine Negative (Negative); Clarity,Urine Clear (Clear/Hazy); Color,Urine Lt-Yellow (Lt Yel-Yel); Culture Indicated,Urine Not Indicated; Glucose, Urine Negative (Negative); Ketones,Urine Negative (Negative); Leukocyte Esterase,Urine Positive (Negative); Nitrite,Urine Negative (Negative); PH,Urine 6.0 (5.0-7.0); Protein,Urine Negative (Neg - Trace); RBC,Urine < 1 /hpf (0-3); Specific Gravity,Urine 1.008 (1.001-1.035); Squamous Epithelial Cell,Urine 1 /hpf (0-5); Urobilinogen,Urine Negative mg/dL (0.0-1.0); WBC,Urine 2 /hpf (0-5)
[2025-01-13 23:04] LABS: Lactate (Lactic Acid) 1.4 mMol/L (0.4-2.0)
[2025-01-13 23:15] LABS: Basophils # (Auto) 0.0 Thou/mm3 (0.0-0.2); Basophils % (Auto) 0 % (0-2.5); Eosinophils # (Auto) 0.1 Thou/mm3 (0.0-0.5); Eosinophils % (Auto) 2 % (0-10); Hematocrit 39.8 % (36.0-46.0); Hemoglobin 13.0 g/dL (12.0-16.0); Immature Granulocytes Auto 0.01 Thou/mm3 (0.00-0.00); Lymphocytes # (Auto) 3.5 Thou/mm3 (1.0-4.8); Lymphocytes % (Auto) 50 % (10-50); Mean Corpuscular HGB Conc 32.7 g/dl (31.0-37.0); Mean Corpuscular Hemoglobin 29.3 pg (25.0-35.0); Mean Corpuscular Volume 90 fL (80-100); Monocytes # (Auto) 0.4 Thou/mm3 (0.0-0.8); Monocytes % (Auto) 6 % (0-12); Neutrophils # (Auto) 2.9 Thou/mm3 (1.8-7.7); Neutrophils % (Auto) 42 % (37-80); Nucleated Red Blood Cell # 0.00 Thou/mm3 (0.00-0.00); Nucleated Red Blood Cell % 0 /100 WBC (0); Platelet Count 346 Thou/mm3 (140-440); RDW Standard Deviation 42.5 fL (36.4-46.3); Red Blood Count 4.43 Miln/mm3 (4.00-5.20); White Blood Count 7.0 Thou/mm3 (3.6-11.0)
[2025-01-13 23:50] LABS: Alanine Aminotransferase 42 U/L (10-49); Albumin, Serum 5.2 gm/dL (3.5-5.0); Albumin/Globulin Ratio 2.0 (1.2-2.2); Alkaline Phosphatase 102 U/L (46-116); Anion Gap 12 (7-16); Aspartate Amino Transferase 31 U/L (0-34); BUN/Creatinine Ratio 14 Ratio (12-20); Bilirubin,Total 0.3 mg/dL (0.3-1.2); Blood Urea Nitrogen 10 mg/dL (9-23); Calcium 10.3 mg/dL (8.3-10.6); Calcium (Corrected) 10.3 mg/dL (8.5-10.1); Carbon Dioxide 22.5 mMol/L (20.0-31.0); Chloride 105 mMol/L (98-107); Creatinine (Component) 0.7 mg/dL (0.6-1.3); Globulin 2.6 gm/dL (2.3-3.5); Glucose 93 mg/dL (74-106); Magnesium 1.8 mg/dL (1.6-2.6); Osmolality,Calculated 276 (275-295); Potassium 4.0 mMol/L (3.4-5.1); Procalcitonin < 0.04 ng/ml (0.0-0.49); Sodium 139 mMol/L (136-145); Total Protein 7.8 gm/dL (5.7-8.2); eGFR > 60 See Note
[2025-01-14 00:13] VITALS: BP 137/91; PULSE 101; RESP 20; TEMP 36.8; O2SAT 97
== END 2025-01-14 01:02 | disposition home or self-care (01) ==
PROVIDERS: Physician Assistant; Emergency Provider Emergency Medicine; PCP Obstetrics & Gynecology
DX: R51.9 Headache, unspecified (principal); T50.995A Adverse effect of other drugs, medicaments and biological substances, initial encounter; I10 Essential (primary) hypertension; H53.8 Other visual disturbances; L29.9 Pruritus, unspecified; R42 Dizziness and giddiness
CPT/HCPCS: 36415; 70450; 71046; 80053; 81001; 83605; 83735; 84145; 85025; 87400; 87811; 99283; J1100; A9270

== ENCOUNTER 2025-01-19 11:09 | Outpatient (AMB) | payer MEDICAID, SELFPAY ==
[2025-01-19 11:22] VITALS: BP 147/86; PULSE 63; RESP 17; TEMP 36.6; O2SAT 98; BMI 32.7
--- NOTE | 2025-01-19 11:22 | AMBOBPPN_ITS ---
Vital Signs 01/19/25 11:22 Height 1.6 m Height Method Measured Weight 83.688 kg Weight Measurement Method Standing Scale BMI 32.7 BP 147/86 H Blood Pressure Source Automatic Cuff Blood Pressure Location Right Upper Arm Position Sitting Respiration 17 Pulse 63 Pulse Source Monitor Temp 97.8 F Temp Source Temporal Artery Scan Pulse Oximetry (%) 98 Oxygen Delivery Method Room Air Allergies/Home Meds Allergies & Medications Allergies No Known Allergies Allergy (Verified 01/19/25 11:22) Medication Reconciliation mv-mn no.97-folic 180 mcg-dha 25 mg-herb no.293 25 mg chewable tablet (Alive Daily Support ) 1 tab PO DAILY supplement 11/28/24 [History Confirmed 01/19/25] blood sugar diagnostic (Blood Glucose Test strips) #10 ea 12/09/24 [Rx Confirmed 01/19/25] lancets #100 ea 12/09/24 [Rx Confirmed 01/19/25] metformin 500 mg tablet 500 mg PO BID 12/19/24 [History Confirmed 01/19/25] nifedipine 60 mg tablet,extended release 60 mg PO QDAY 30 days #30 tabs 12/26/24 [Rx Confirmed 01/19/25] Intake Visit Data Collection New Patient or Established: Established Patient (seen at [facility] within 3 years) Reason for Visit:: Consent obtained for Telemed Visit: No Seen by Clinical Staff ONLY (RN/MA): No Bundles Hanger Required: No Do You Feel Safe at Home: Yes Authorities Contacted: N/A PCP or OBGYN visit in last 3 months: Yes Date of Last PCP or OBGYN visit: 01/14/25 Hx Now: No Are you currently on any form of Control: No Pain Present Currently: No Pain Scale Used: Srinivasan-Cotto/Numerical Pain scale:: 0 Smoking Status Smoking Status: 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 History Past Medical History: Yes Hx Neurological Disorders, No Hx Cardiac Disorders, Yes Hx Hypertension (GHTN), No Hx Cancer, Yes Hx Blood Disorders, Yes Hx Anemia, Yes Hx Gastrointestinal Disorders, No Hx Renal Disease, No Hx Diabetes Mellitus Type 1 and Yes Hx Diabetes Mellitus Type 2 Questionnaires Covid-19 Vaccine Questionnaire Has patient been vacinated for Covid-19 Have you been vacinated for Covid-19: No Social History Living Situation History Lives With: Family Housing: House Tobacco History Smoking Status: Never smoker Second Hand Smoke Exposure: No Alcohol History Alcohol Intake: Never Domestic Abuse History Do You Feel Safe at Home: Yes EPDS - PP Depression Screening [place] Pospartum Depression Screen I have been able to laugh and see the funny side of things: (0) As much as I always could I have looked forward with enjoyment to things: (0) As much as I ever did I have blamed myself unnecessarily when things went wrong: (0) No, never I have been anxious or worried for no good reason: (0) No, not at all I have felt scared or panicky for no very good reason: (0) No, not at all Things have been getting on top of me: (0) No, I have been coping as well as ever I have been so unhappy that I have had difficulty sleeping: (0) No, not at all I have felt sad or miserable: (0) No, not at all I have been so unhappy that I have been crying: (0) No, never The thought of harming myself has occurred to me: (0) Never Care OB Visit Log OB Flowsheet Initial Weight: Not Recorded Date -?-?-?-?-?-?-?-?-?-?-?-?- EGA Weight BP Alb Glu CTX Pres Fundal ht FHR Mov Dilation Station Effacement Hx Notes Visit Note 11/17/24 -?-?-?-?-?-?-?-?--?-?-?-?- 33w 1d 86.75 kg 121/80 absent cephalic 32 145 active 39 yo ob transfer from [facility] with records, GDM on metformin 500 bid. compliannt with glucose testing and diet. fetus active. c/o dysuria. refused mfm referal due to locartion. denies ptl signs,no leaking, fetus active low dose asa. continue PNV, sched sono at [facility] for growth sono, patient cancelled sono with MFM/too far, schedule NST/BPP. continue metformin 500 bid. continue GDM diet, sched with OB, sugars after breakfast elevated 75%. continue to walk 40 min daily, discuss fkc bid and PTL prwcaution, discuss GDM diet. A1c and ua today. rtc 2 week 11/28/24 -?-?-?-?-?-?-?-?-?-?-?-?- 34w 5d 89.131 kg 133/82 absent cephalic 35 144 39y/o at 34+5 weeks gestation with GDM on metformin BID, presents for routine visit. Denies CTX, LOF, VB; reports good FM Pl an: continue metformin, initiate BPP w2ientx, schedule IOL ~12/28/24, f/u in 2 weeks. 12/09/24 -?-?-?-?-?-?-?-?-?-?-?-?- 36w 2d 89.358 kg 134/84 absent cephalic 36 145 active test once daily, compliant with metformin 500 daily. fetus active, no c/o labor. refuses f/u growth sono. stop ASA, IOL 12/28, review labor precaution. fkc bid. continue metformin 500 bid, review GDM diet. continue BIweekly NST BPP. sched sono at [facility] for dates. refill lancet and strip, stop ASA, discuss labor precaution,fkc bid, rtc 1 week with GDM log. GBS today IOL 12/28/24, review labor pr ecaution. fkc bid. continue metformin 500 bid, review GDM diet. continue BIweekly NST BPP. sched sono at [facility] for dates. refill lancet and strip, stop ASA, discuss labor precaution,fkc bid, rtc 1 week with GDM log. GBS today. nuswab 12/17/24 -?-?-?-?-?-?-?-?-?-?-?-?- 37w 3d 89.868 kg 154/88 absent cephalic 37 146 active 1 -3 25 report compliance with GDM diet and glucose monitoring. sugar at goal 90%. patient left [facility] 12/15 from [facility]. patient was schedule for IOL due to gestational HTN. patient has been checking BP at home, BP remains consistent elevated. BP today: 154/88. denies PIH complaints. patient is hesitant to IOL, denies UC, no VB or leaking. fetus active, DTR +2,no edema,no clonus discuss with patient IOL. discuss gestational hypertention and diabetes to her and fetus. today, patient agrees to BST/BPP in am and IOL if needed, agrees to schedule IOL on 12/19/24. . discuss PIH precaution, fkc bid. discuss danger s/s and ER precaution. rtc 1 week discuss with patient IOL. kristine cheatham . review GDM diet and BS log gestational hypertention and diabetes to her and fetus. today, patient agrees to BST/BPP in am and IOL if needed, agrees to schedule IOL on 12/19/24. . discuss PIH precaution, fkc bid. discuss danger s/s and ER precaution. rtc 1 week BARBIE Calculator Estimated Delivery Date Method Current WG Current Estimate 01/04/25 LMP (Certain) 42w 1d Notes Visit Date: 11/17/24 Last Updated by: Court Suggs CNM 39 yo GDM/diet. lmp 03/30/25. EDC 01/08/25, 1hr gtt: 169, A1: 5.9. O+,abs-, rpr;;nr, rub imm, HBSAG-,hiv-, HC-, GC./CT-. . NIPT/af/,carrier screen- HPI Interval History: 39-year-old 6 para 5 for 4-week visit. Patient had a vaginal December 21, 2024. Baby boy weighing 6 pounds. Patient was induced for GDM and chronic hypertension at 37 weeks. Patient also developed a fever of unknown origin after delivery. Was treated with antibiotics. Discharged home on nifedipine XL 60 mg. Patient is not taking nifedipine for 2 weeks. She had a ER visit for swelling and was told in the ER to stop her nifedipine. Blood pressures remain 130s over 70s. She monitors blood pressures at home. Patient has not an appointment with family practice at [facility] today. No complaints of PIH. No headaches. No epigastric pain. Patient denies pain. Patient is not sexually active. Plans to use ParaGard. Patient is breast- feeding. Good help at home. In good bonding. Happy, no depression. Patient used ParaGard in the past Was or delivery considered high risk: Yes Delivery type: vaginal Was labor induced: yes Gestational age at delivery (weeks): 37 Delivery date: 12/21/24 Delivering provider: jocelynn suggs Delivery complications: Yes Delivery complications comment: Developed increased BP pp and was started on MGSO$ x 24 hr. patient also developed elevated Temp and treated with antibiotic IV. 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 Lungs clear no wheezes. Abdomen is soft nontender. Uterus well involuted. Perineum is intact no lacerations. No swelling. Small lochia. Negative Homans' sign. 2+ DTRs. No edema no swelling. Breasts are soft, no mastitis, stitches healing, no s/s of infection General Limitations: no limitations General Appearance: alert, in no apparent distress, comfortable, cooperative, healthy appearing, well developed and well groomed Head Head exam: atraumatic, normocephalic and normal inspection ENT ENT exam: Present normal exam, normal oropharynx and mucous membranes moist Neck Neck exam: Present normal inspection, full ROM and trachea midline Chest Chest inspection: Present normal inspection and symmetric chest wall rise Resp Respiratory exam: Present normal lung sounds bilaterally Extremities Extremities exam: Present normal inspection and full ROM Psych Psychiatric exam: Present normal affect and normal mood Office Procedures OB Clinic LOC & Office Proc's Nursing/Assessment Patient Status: Established Patient OB Clinic Nursing Assessment: Medication Reconciliation, Update PMH in EMR and Vital Signs OB Clinic Coordination of Care: Complex Care and Chronic Disease 1-5, Consent,records obtained, informed consent, Education Simp Pt/Fam and Results/Orders obtained Established Patient Charge Established Patient Point Assignment: 80 Established Patient Point Charge: EP Level 3 (80-115) Post Follow-up Visit Post Follow up Visit: Yes Assessment & Plan Diagnosis / Problem List (1) Routine Follow-Up: (2) 2 weeks follow-up: Status: Acute Plan Keep appointment with Amita Cohen for chronic hypertension management. Continue to monitor blood pressures at home. Continue GDM diet. Reviewed ParaGard insert and side effects. I will order a 2-hour GTT at next visit. Okay to walk. No sex. Return for IUD insert Care Reviewed delivery summary and any complications: Yes Uterus involuted to: 3 below Perineal / incision healing noted: Yes Screened for depression: Yes Depression counseling provided: No Discussed family planning & contraception: Yes Contraception planned: paraguard Counseling on safe resumption of sexual activity: Yes Counseling on gradual excercise: Yes Discussed and concerns (describe), provided support: Yes Referred to computer systems support specialist: No Counseled on good nutrition, hydration, and self care: Yes Reviewed vaccine status: No Chronic & current problems reconciled on problem list: Yes care discussed; questions answered: feeding Follow up: routine/prn Additional counseling & anticipatory guidance provided: rtc 2 week for IUD insert and 2 hr gtt, f/u with PCP for chtn management. I buprophen on day of insert/prior to procedure (FP) Tobacco Smoking Status: Never smoker
== END 2025-01-19 11:53 | disposition home or self-care (01) ==
LOC: HODSOBC 11:09
PROVIDERS: Supervising Provider Advanced Practice Midwife; Visit Provider Advanced Practice Midwife
DX: Z39.2 Encounter for routine postpartum follow-up (principal); O10.93 Unspecified pre-existing hypertension complicating the puerperium; O24.435 Gestational diabetes mellitus in puerperium, controlled by oral hypoglycemic drugs; Z39.1 Encounter for care and examination of lactating mother; Z79.899 Other long term (current) drug therapy
CPT/HCPCS: 59430; 99213; G0463

== ENCOUNTER 2025-02-12 09:27 | Outpatient (AMB) | payer MEDICAID, SELFPAY ==
[2025-02-12 09:51] VITALS: BP 144/84; PULSE 70; RESP 16; TEMP 36.7; O2SAT 98; BMI 33.9
--- NOTE | 2025-02-12 09:51 | AMB.GYNCLNOT ---
Vital Signs 02/12/25 09:51 Height 1.6 m Height Method Stated Weight 86.806 kg Weight Measurement Method Standing Scale BMI 33.9 BP 144/84 H Blood Pressure Source Automatic Cuff Blood Pressure Location Left Upper Arm Position Sitting Respiration 16 Pulse 70 Pulse Source Monitor Temp 98.1 F Temp Source Oral Pulse Oximetry (%) 98 Oxygen Delivery Method Room Air Allergies/Home Meds Allergies & Medications Allergies No Known Allergies Allergy (Verified 02/12/25 09:54) Medication Reconciliation mv-mn no.97-folic 180 mcg-dha 25 mg-herb no.293 25 mg chewable tablet (Alive Daily Support ) 1 tab PO DAILY supplement 11/28/24 [History Confirmed 02/12/25] blood sugar diagnostic (Blood Glucose Test strips) #10 ea 12/09/24 [Rx Confirmed 02/12/25] lancets #100 ea 12/09/24 [Rx Confirmed 02/12/25] metformin 500 mg tablet 500 mg PO BID 12/19/24 [History Confirmed 02/12/25] nifedipine 60 mg tablet,extended release 60 mg PO QDAY 30 days #30 tabs 12/26/24 [Rx Confirmed 02/12/25] Intake Visit Data Collection New Patient or Established: Established Patient (seen at [facility] within 3 years) Reason for Visit:: IUD INSERTION Seen by Clinical Staff ONLY (RN/MA): No Senior Java 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 Required: No Do You Feel Safe at Home: Yes Authorities Contacted: N/A PCP or OBGYN visit in last 3 months: Yes Hx Now: No Are you currently on any form of Control: No Last menstrual period: 01/29/25 Pain Present Currently: No Pain Scale Used: Srinivasan-Cotto/Numerical Pain scale:: 0 Smoking Status Smoking Status: Never smoker 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 History Menstrual regularity: regular Flow: normal Monthly: Yes How many days does period last: 5 Age at menarche: 13 Currently sexually active: No If not currently sexually active, have you ever been sexually active: Yes 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 1. Little interest or pleasure in doing things: not at all 2. Feeling down, depressed, or hopeless: not at all Total score: 0 PHQ-9 3. Trouble falling or staying asleep, or sleeping too much: Not at all 4. Feeling tired or having little energy: Not at all 5. Poor appetite or overeating: Not at all 6. Feeling bad about yourself - or that you are a failure or have let yourself or your family down: Not at all 7. Trouble concentrating on things, such as reading the newspaper or watching television: Not at all 8. Moving or speaking so slowly that other people could have noticed? - Or the opposite - being so fidgety or restless that you have been moving around a lot more than usual: not at all 9. Thoughts that you would be better off or of hurting yourself in some way: Not at all Total score: 0 Source: Developed by Drs. Kana Sotelo, Nuha Domínguez, Genaro Jc and colleagues, with an educational missy from [employer]. Depression screen completed yes Social History Living Situation History Lives With: Family Housing: House Tobacco History Smoking Status: Never smoker Second Hand Smoke Exposure: No Alcohol History Alcohol Intake: Never Domestic Abuse History Do You Feel Safe at Home: Yes History of Present Illness HPI Narrative 39-year-old 6 para 5 for ParaGard IUD insertion. Patient is now 7 weeks . She had a vaginal December 29, 2024. Patient was induced for history of GDM and high blood pressure. She had a hemorrhage after delivery. No complaints or signs of anemia at this time. Patient is breast-feeding baby boy. She was induced at 37 weeks. Patient sent home on nifedipine XL. She is taking 60 mg daily. She has an appointment with family practice February 28, 2025. Denies any headache. Denies epigastric pain denies blurred vision. Denies symptoms of preeclampsia. Patient reports that she has been continuing her GDM diet. She is not sexually active. Breast-feeding. Denies any signs symptoms of vaginitis. And she has had no surgeries. test is negative Review of Systems Review of Systems Systems Reviewed: All systems reviewed, normal except as documented Exam Narrative Physical exam: Normal heart rate and rhythm. Lungs clear no wheezes. Abdomen is soft nontender. Uterus well involuted. Perineum is intact no lacerations. No swelling. Small lochia. Negative Homans' sign. 2+ DTRs. No edema no swelling. Breasts are soft. parroud cervix General Limitations: no limitations General Appearance: alert, in no apparent distress, comfortable, cooperative, healthy appearing, well developed and well groomed Chest Chest inspection: Present normal inspection and symmetric chest wall rise Resp Respiratory exam: Present normal lung sounds bilaterally Card Cardiovascular exam: Present regular rate, normal rhythm and normal heart sounds Abdominal Abdominal exam: Present soft and normal bowel sounds Psych Psychiatric exam: Present normal affect and normal mood Results Objective Laboratory: negative preg test Office Procedures OB Clinic LOC & Office Proc's Nursing/Assessment Patient Status: Established Patient OB Clinic Nursing Assessment: Medication Reconciliation, Update PMH in EMR and Vital Signs OB Clinic Coordination of Care: Complex Care and Chronic Disease 1-5, Consent,records obtained, informed consent, Education Simp Pt/Fam, Lab and Imaging orders, Results/Orders obtained and Staff clarify orders Miscellaneous Interventions: Pelvic no cultures Established Patient Charge Established Patient Point Assignment: 115 In Clinic Bedside tests Bedside HCG: Yes In Clinic Procedures INSERTION OF ANY IUD DEVICE: Yes Results Urine HCG Urine HCG Negative Last Edit by Janeen Tang MA on 02/12/25 09:57 Assessment & Plan Diagnosis / Problem List (1) Encounter for insertion of ParaGard IUD: Status: Acute Plan Consent for IUD insert. Reviewed danger signs symptoms ,side effects, compliance and effectiveness of ParaGard. No sex for 3 days. Condoms for 2 weeks. Discussed string check once a month. Discussed signs symptoms of expulsion. Return for 4 weeks. I ordered 2-hour glucose. Patient to keep family practice appointment February 28 for high blood pressure. 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 Negative test. Bimanual exam performed. Uterus is midposition. Parous cervix. Betadine cleanse of the cervix x 3. Ring forcep was placed on anterior lip of cervix. ParaGard inserted with applicator. Strings trimmed to 3 cm. No bleeding was noted and patient tolerated the procedure well.
== END 2025-02-12 10:20 | disposition home or self-care (01) ==
LOC: HODSOBC 09:27
PROVIDERS: Supervising Provider Advanced Practice Midwife; Visit Provider Advanced Practice Midwife
DX: Z30.430 Encounter for insertion of intrauterine contraceptive device (principal)
CPT/HCPCS: 58300; 81025; J7300